=== PATIENT | female | born 1980 | race Caucasian/White ===

== ENCOUNTER 2016-12-21 18:50 | Emergency (ER) | payer OTHER ==
[2016-12-21 18:55] VITALS: TEMP 99
[2016-12-21] MEDS ORDERED: RX INFO: IV CONTRAST WAS GIVEN 1 EACH MISC MISCELLANE PRN (19:04)
[2016-12-21] MEDS ORDERED: SODIUM CHLORIDE 0.9% 2,000 ML IV ONE (19:05)
[2016-12-21] MEDS ORDERED: HYDROmorphone 1 MG/ML 1 ML SYRINGE IVP STA (19:05)
[2016-12-21] MEDS ORDERED: KETOROLAC 30 MG/ML 1 ML VIAL IVP STA (19:05)
[2016-12-21] MEDS ORDERED: AMPICILLIN-SULBACTAM 3 GM in SODIUM CHLORIDE 0.9% 100 ML IVPB STA (19:12)
--- NOTE | 2016-12-21 19:13 | ED ---
Skin/Abscess/FB HPI - General Chief complaint: Skin/Abscess/Foreign Body Stated complaint: abscess in throat Time Seen by Provider: 12/21/16 18:57 Source: patient, RN notes reviewed, old records reviewed Mode of arrival: ambulatory Limitations: no limitations - History of Present Illness Initial comments: This is a 36-year-old female with chief complaint of right sided throat, neck, facial swelling for the past day and half. Patient per that she's had pain and difficulty swallowing for the past 3 days. She reports that she may have had an abscess in her tooth that started cause this, reports that she frequently uses a toothpick in the back of her mouth and thinks maybe there is something stuck back there. Patient states that she's had a mild fever. Denies any recent use of antibiotics. Patient states that she feels like the back of her throat as touching her uvula. She denies any difficulty breathing at this time. Denies any chest pain or shortness of breath, nausea or vomiting. - Related Data Home Medications Medication Instructions Recorded Confirmed Omeprazole [PriLOSEC] 20 mg PO AC-BRKFST 07/26/15 12/21/16 Allergies Allergy/AdvReac Type Severity Reaction Status Date / Time tramadol HCl [From Ultram] Allergy Rash/Hives Verified 12/21/16 19:12 Review of Systems ROS Statement: Those systems with pertinent positive or pertinent negative responses have been documented in the HPI. ROS Other: All systems not noted in ROS Statement are negative. Past Medical History Past Medical History: No Reported History History of Any Multi-Drug Resistant Organisms: MRSA Date of last positivie culture/infection: 2005/MRSA MDRO Source:: Left leg Additional Past Surgical History / Comment(s): cyst removed from ovary, D & C, liver biopsy, breast biopsy Past Psychological History: Anxiety, Depression Smoking Status: Current every day smoker Past Alcohol Use History: None Reported Past Drug Use History: Marijuana General Exam - General Exam Comments Initial Comments: Ill-appearing 36-year-old female. Limitations: no limitations General appearance: alert, in no apparent distress Head exam: Present: atraumatic, normocephalic, normal inspection Eye exam: Present: normal appearance, PERRL, EOMI. Absent: scleral icterus, conjunctival injection, periorbital swelling ENT exam: Present: normal exam, mucous membranes moist, TM's normal bilaterally. Absent: normal oropharynx (Patient has evidence of what appears to be an abscess over the right upper oropharynx, no evidence of uvula deviation. ) Neck exam: Present: normal inspection, full ROM. Absent: tenderness, meningismus, lymphadenopathy Respiratory exam: Present: normal lung sounds bilaterally. Absent: respiratory distress, wheezes, rales, rhonchi, stridor Cardiovascular Exam: Present: regular rate, normal rhythm, normal heart sounds. Absent: systolic murmur, diastolic murmur, rubs, gallop, clicks GI/Abdominal exam: Present: soft, normal bowel sounds. Absent: distended, tenderness, guarding, rebound, rigid Extremities exam: Present: normal inspection, full ROM, normal capillary refill. Absent: tenderness, pedal edema, joint swelling, calf tenderness Back exam: Present: normal inspection Neurological exam: Present: alert, oriented X3, CN II-XII intact Psychiatric exam: Present: normal affect, normal mood Skin exam: Present: warm, dry, intact, normal color. Absent: rash Course Vital Signs 12/21/16 12/21/16 18:51 20:44 Temperature 99.0 F Pulse Rate 71 85 Respiratory 18 16 Rate Blood Pressure 121/65 139/70 O2 Sat by Pulse 99 97 Oximetry Medical Decision Making - Medical Decision Making This is a 36-year-old female with chief complaint of right sided throat, neck, facial swelling for the past day and half. Patient per that she's had pain and difficulty swallowing for the past 3 days. She reports that she may have had an abscess in her tooth that started cause this, reports that she frequently uses a toothpick in the back of her mouth and thinks maybe there is something stuck back there. Patient has evidence of a abscess over the right upper oropharynx. No evidence of uvular deviation at this time. Patient is tender over the entire neck. She does have somewhat of a muffled voice. Patient was given IV fluids and started on Unasyn. Patient received CT neck with contrast. Patient CT has shows evidence of right-sided peritonsillar abscess with mild necrosis. Patient is informed of these results. She was very started on IV Unasyn. Patient reports that she needs to go home to take care of her son who is currently in a 90 day treatment program. Patient is concerned that she is going to be in contact with [facility] if she leaves her son alone. Patient was adamant that she needs to leave. I discussed the risk and benefits for the patient including closing of the airway and worsening of infection. Patient understands these risks. Patient states that she is going to sign out AMA get her son and situation handle and then return for further treatment. Patient understands all risks of leaving AMA. - Lab Data Result diagrams: 12/21/16 19:25 12/21/16 19:25 Lab Results 12/21/16 12/21/16 12/21/16 Range/Units 19:25 19:25 19:25 WBC 14.1 H (3.8-10.6) k/uL RBC 3.90 (3.80-5.40) m/uL Hgb 11.1 L (11.4-16.0) gm/dL Hct 33.9 L (34.0-46.0) % MCV 87.1 (80.0-100.0) fL MCH 28.4 (25.0-35.0) pg MCHC 32.6 (31.0-37.0) g/dL RDW 16.4 H (11.5-15.5) % Plt Count 217 (150-450) k/uL Neutrophils % 76 % Lymphocytes % 17 % Monocytes % 4 % Eosinophils % 1 % Basophils % 1 % Neutrophils # 10.7 H (1.3-7.7) k/uL Lymphocytes # 2.3 (1.0-4.8) k/uL Monocytes # 0.6 (0-1.0) k/uL Eosinophils # 0.1 (0-0.7) k/uL Basophils # 0.1 (0-0.2) k/uL Anisocytosis Slight Sodium 142 (137-145) mmol/L Potassium 3.6 (3.5-5.1) mmol/L Chloride 107 (98-107) mmol/L Carbon Dioxide 23 (22-30) mmol/L Anion Gap 12 mmol/L BUN 6 L (7-17) mg/dL Creatinine 0.60 (0.52-1.04) mg/dL Est GFR (MDRD) Af Amer >60 (>60 ml/min/1.73 sqM) Est GFR (MDRD) Non-Af >60 (>60 ml/min/1.73 sqM) Glucose 83 (74-99) mg/dL Plasma Lactic Acid Pavel (0.7-2.0) mmol/L Calcium 9.3 (8.4-10.2) mg/dL Total Bilirubin 0.6 (0.2-1.3) mg/dL AST 13 L (14-36) U/L ALT 30 (9-52) U/L Alkaline Phosphatase 57 (38-126) U/L Total Protein 6.6 (6.3-8.2) g/dL Albumin 4.0 (3.5-5.0) g/dL Heterophile Antibody Negative (Negative) Group A Strep Rapid (Negative) 12/21/16 12/21/16 Range/Units 19:25 19:25 WBC (3.8-10.6) k/uL RBC (3.80-5.40) m/uL Hgb (11.4-16.0) gm/dL Hct (34.0-46.0) % MCV (80.0-100.0) fL MCH (25.0-35.0) pg MCHC (31.0-37.0) g/dL RDW (11.5-15.5) % Plt Count (150-450) k/uL Neutrophils % % Lymphocytes % % Monocytes % % Eosinophils % % Basophils % % Neutrophils # (1.3-7.7) k/uL Lymphocytes # (1.0-4.8) k/uL Monocytes # (0-1.0) k/uL Eosinophils # (0-0.7) k/uL Basophils # (0-0.2) k/uL Anisocytosis Sodium (137-145) mmol/L Potassium (3.5-5.1) mmol/L Chloride (98-107) mmol/L Carbon Dioxide (22-30) mmol/L Anion Gap mmol/L BUN (7-17) mg/dL Creatinine (0.52-1.04) mg/dL Est GFR (MDRD) Af Amer (>60 ml/min/1.73 sqM) Est GFR (MDRD) Non-Af (>60 ml/min/1.73 sqM) Glucose (74-99) mg/dL Plasma Lactic Acid Pavel 0.6 L (0.7-2.0) mmol/L Calcium (8.4-10.2) mg/dL Total Bilirubin (0.2-1.3) mg/dL AST (14-36) U/L ALT (9-52) U/L Alkaline Phosphatase (38-126) U/L Total Protein (6.3-8.2) g/dL Albumin (3.5-5.0) g/dL Heterophile Antibody (Negative) Group A Strep Rapid Negative (Negative) - Radiology Data Radiology results: report reviewed Bilateral tonsillar enlargement and more on the right side consistent with tonsillitis. There is a 1 small low density in the area anterior to the right tonsil which could be a peritonsillar abscess. Mild bilateral cervical adenopathy. There are tiny air bubbles in the region of the tonsils which raised the possibility of necrosis. Disposition Clinical Impression: Peritonsillar abscess Disposition: Left Against Medical Advice Condition: Stable Referrals: Jeancarlos Oh DO [Primary Care Provider] - 1-2 days Time of Disposition: 21:30
[2016-12-21] MEDS ORDERED: SODIUM CHLORIDE 0.9% 1,000 ML IV SCH (19:15)
[2016-12-21] MEDS ORDERED: ACETAMINOPHEN TAB 500 MG TAB PO STA (19:25)
[2016-12-21 19:54] LABS: Anisocytosis Slight; Basophils # (A) 0.1 k/uL (0-0.2); Basophils % (A) 1 %; CH 28.6; CHCM 32.9; Eosinophils # (A) 0.1 k/uL (0-0.7); Eosinophils % (A) 1 %; HCT 33.9 % (34.0-46.0); HDW 2.48; HGB 11.1 gm/dL (11.4-16.0); Luc # (Auto) 0.25; Luc % (Auto) 2; Lymphocytes # (A) 2.3 k/uL (1.0-4.8); Lymphocytes % (A) 17 %; MCH 28.4 pg (25.0-35.0); MCHC 32.6 g/dL (31.0-37.0); MCV 87.1 fL (80.0-100.0); Mean Platelet Volume 10.2; Monocytes # (A) 0.6 k/uL (0-1.0); Monocytes % (A) 4 %; Neutrophils # (A) 10.7 k/uL (1.3-7.7); Neutrophils % (A) 76 %; RDW 16.4 % (11.5-15.5); WBC 14.1 k/uL (3.8-10.6)
--- NOTE | 2016-12-21 19:54 | CT ---
EXAMINATION TYPE: CT soft tissue neck w con DATE OF EXAM: 12/21/2016 7:40 PM COMPARISON: NONE HISTORY: Patient complains of sore throat. CT DLP: 257.3 mGycm Automated exposure control for dose reduction was used. CONTRAST: CT scan of the neck is performed following with IV Contrast, patient injected with 100 mL of Omnipaqu e 300. Axial images are obtained, coronal and sagittal reformatted images are reviewed. FINDINGS: There is normal branching pattern of the great vessels on the aortic arch. There is bilateral arteria l flow in the vertebral arteries. Left vertebral artery is larger than the right. There is contrast o pacification of the carotid arteries and jugular veins. Thyroid gland is symmetric. Submandibular mihai ivary glands are fairly symmetric. Parotid glands are symmetric. Epiglottis appears normal. There is bilateral enlarged tonsils and more on the right side compared to the left. There are a few soft tiss ue air bubbles as well. There is a 12 mm hypodense area anterior to the right tonsil. The tongue appe ars normal. Ethmoid air cells appear normal. There are a few anterior triangle cervical lymph nodes. There is an enlarged right cervical lymph node that measures 1.7 cm. IMPRESSION: Bilateral tonsillar enlargement and more the right side consistent with tonsillitis. The re is a small low-density area anterior to the right tonsil that could be peritonsillar abscess. Mild bilateral cervical adenopathy. There are tiny air bubbles in the region of the the tonsils that rais e the possibility of necrosis.
[2016-12-21 20:13] LABS: ALT 30 U/L (9-52); AST 13 U/L (14-36); Alkaline Phosphatase 57 U/L (38-126); Anion Gap 12 mmol/L; Blood Urea Nitrogen 6 mg/dL (7-17); Calcium 9.3 mg/dL (8.4-10.2); Carbon Dioxide 23 mmol/L (22-30); Chloride 107 mmol/L (98-107); Glucose 83 mg/dL (74-99); Non-African American GFR(MDRD) >60 (>60 ml/min/1.73 sqM); Potassium 3.6 mmol/L (3.5-5.1); Sodium 142 mmol/L (137-145); Total Bilirubin 0.6 mg/dL (0.2-1.3); Total Protein 6.6 g/dL (6.3-8.2)
[2016-12-21 20:45] VITALS: BP 139/70; PULSE 85; RESP 16
== END 2016-12-21 21:34 | disposition left against medical advice (07) ==
LOC: EC 18:50
DX: J36 Peritonsillar abscess (principal); F17.200 Nicotine dependence, unspecified, uncomplicated; Z79.899 Other long term (current) drug therapy; Z88.6 Allergy status to analgesic agent
CPT/HCPCS: 36415; 80053; 83605; 85025; 86308; 87040; 87081; 87430; 70491; 99284; 96365; 96375 ×2; 96361; J1885; J1170; Q9967; J0295

== ENCOUNTER 2016-12-23 15:06 | Emergency (ER) | payer OTHER ==
[2016-12-23] MEDS ORDERED: RX INFO: IV CONTRAST WAS GIVEN 1 EACH MISC MISCELLANE PRN (16:15)
[2016-12-23 17:22] LABS: Anisocytosis Slight; Basophils # (A) 0.1 k/uL (0-0.2); Basophils % (A) 1 %; CH 28.5; CHCM 32.5; Eosinophils # (A) 0.3 k/uL (0-0.7); Eosinophils % (A) 3 %; HCT 33.5 % (34.0-46.0); HDW 2.49; HGB 10.8 gm/dL (11.4-16.0); Luc # (Auto) 0.14; Luc % (Auto) 2; Lymphocytes # (A) 2.6 k/uL (1.0-4.8); Lymphocytes % (A) 28 %; MCH 28.5 pg (25.0-35.0); MCHC 32.3 g/dL (31.0-37.0); MCV 88.1 fL (80.0-100.0); Mean Platelet Volume 10.4; Monocytes # (A) 0.4 k/uL (0-1.0); Monocytes % (A) 4 %; Neutrophils % (A) 64 %; RDW 16.6 % (11.5-15.5); WBC 9.4 k/uL (3.8-10.6); WBC (Perox) 9.88
[2016-12-23 17:31] LABS: Anion Gap 7 mmol/L; Blood Urea Nitrogen 9 mg/dL (7-17); Calcium 8.7 mg/dL (8.4-10.2); Carbon Dioxide 27 mmol/L (22-30); Chloride 109 mmol/L (98-107); Glucose 88 mg/dL (74-99); Non-African American GFR(MDRD) >60 (>60 ml/min/1.73 sqM); Potassium 3.7 mmol/L (3.5-5.1); Sodium 143 mmol/L (137-145)
--- NOTE | 2016-12-23 18:40 | CT ---
EXAMINATION TYPE: CT neck chest w con DATE OF EXAM: 12/23/2016 6:02 PM COMPARISON: NONE HISTORY: swelling to right side, difficulty swallowing. CT DLP: 602.5 mGycm Automated exposure control for dose reduction was used. CONTRAST: CT scan of the neck is performed following with IV Contrast, patient injected with 100 mL of Omnipaqu e 300. Axial images are obtained, coronal and sagittal reformatted images are reviewed. Multiple axi al sections were obtained from the thoracic inlet to the diaphragm with intravenous contrast. FINDINGS: There is fairly normal aeration of the paranasal sinuses. Thyroid gland is symmetric. There is normal branching pattern of the great vessels on the aortic arch. There is normal contrast opacification of the carotid arteries and jugular veins. There is no sign of a pharyngeal mass. Epiglottis appears no rmal. There is mild symmetric hypertrophy of the tonsils. The submandibular salivary glands are symme tric. Parotid glands are symmetric. There are a few bilateral anterior triangle cervical lymph nodes that measure up to 1 cm. There may be a few air bubbles in the tonsils. The lungs are clear of infiltrate. There is no pleural effusion. Heart size is normal. There are no h ilar masses. There is no mediastinal adenopathy. The bony thorax is intact. Thoracic aorta appears no rmal. IMPRESSION: There is symmetric hypertrophy of the tonsils and a few air bubbles consistent with infl ammatory changes. There are a few anterior triangle cervical lymph nodes up to 1 cm. No evidence of an abscess. Negative CT scan of the chest.
--- NOTE | 2016-12-23 19:34 | ED ---
General Adult HPI - General Chief complaint: Recheck/Abnormal Lab/Rx Stated complaint: Poss infection Time Seen by Provider: 12/23/16 15:30 Source: patient Mode of arrival: ambulatory Limitations: no limitations - History of Present Illness Initial comments: This patient is a 36-year-old woman who presents to have reevaluation for sore throat. She states that she was here approximately 2 days ago having sore throat and noticing a little bit of swelling in the right anterior neck. She states that she was seen and had tests done. She was given a dose of antibiotics and was advised to stay in the hospital but she states that she had to go home and deal with some family issues. She states that she has resolved all that and now I would like to be reevaluated. The patient states that she does feel a little bit better. The main complaint is that when she eats solid food there is still a little bit of pain with swallowing. She is able to breathe and speak without issues. She states she can drink liquids without issues. Patient denies fever or chills. No palpitations. -: days(s) Radiation: non-radiation Quality: burning Consistency: constant Improves with: none Worsens with: eating Associated Symptoms: denies other symptoms Treatments Prior to Arrival: other (See HPI) - Related Data Home Medications Medication Instructions Recorded Confirmed Omeprazole [PriLOSEC] 20 mg PO AC-BRKFST 07/26/15 12/23/16 Ibuprofen [Motrin] 800 mg PO Q8H PRN 12/23/16 12/23/16 Previous Rx's Medication Instructions Recorded Amoxicillin/Potassium Clav 1 tab PO Q12HR #14 tab 12/23/16 [Augmentin 875-125 Tablet] Allergies Allergy/AdvReac Type Severity Reaction Status Date / Time tramadol HCl [From Ultram] Allergy Rash/Hives Verified 12/23/16 15:31 Review of Systems ROS Statement: Those systems with pertinent positive or pertinent negative responses have been documented in the HPI. ROS Other: All systems not noted in ROS Statement are negative. Constitutional: Denies: fever, chills, weakness ENT: Reports: throat pain. Denies: ear pain, hearing loss, congestion Respiratory: Denies: cough, dyspnea, wheezes, hemoptysis Cardiovascular: Denies: palpitations Gastrointestinal: Denies: abdominal pain Skin: Denies: rash Neurological: Denies: headache, weakness, numbness Past Medical History Past Medical History: No Reported History History of Any Multi-Drug Resistant Organisms: MRSA Date of last positivie culture/infection: 2005/MRSA MDRO Source:: Left leg Additional Past Surgical History / Comment(s): cyst removed from ovary, D & C, liver biopsy, breast biopsy Past Psychological History: Anxiety, Depression Smoking Status: Current every day smoker Past Alcohol Use History: None Reported Past Drug Use History: Marijuana General Exam Limitations: no limitations General appearance: alert, in no apparent distress Head exam: Present: atraumatic, normocephalic Eye exam: Present: normal appearance. Absent: scleral icterus, conjunctival injection ENT exam: Present: mucous membranes moist, TM's normal bilaterally, normal external ear exam, other (Patient has a healing ulceration of the right side of the pharynx approximately 5 mm diameter. There is not any significant swelling. The uvula is midline without edema. There is a trace of injection.) Neck exam: Present: full ROM, lymphadenopathy. Absent: tenderness, meningismus Respiratory exam: Present: normal lung sounds bilaterally. Absent: respiratory distress, wheezes, rales, rhonchi, stridor Cardiovascular Exam: Present: regular rate, normal rhythm, normal heart sounds. Absent: systolic murmur, diastolic murmur, rubs, gallop GI/Abdominal exam: Present: soft. Absent: distended, tenderness, guarding, rebound, mass Extremities exam: Present: normal inspection, normal capillary refill. Absent: pedal edema, calf tenderness Back exam: Present: normal inspection. Absent: CVA tenderness (R), CVA tenderness (L) Neurological exam: Present: alert Skin exam: Present: warm, dry, intact, normal color. Absent: rash Course Vital Signs 12/23/16 12/23/16 15:12 18:34 Temperature 98.0 F Pulse Rate 85 56 L Respiratory 20 18 Rate Blood Pressure 108/74 117/66 O2 Sat by Pulse 100 98 Oximetry Medical Decision Making - Lab Data Result diagrams: 12/23/16 17:09 12/23/16 17:09 Lab Results 12/23/16 12/23/16 12/23/16 Range/Units 17:09 17:09 17:09 WBC 9.4 (3.8-10.6) k/uL RBC 3.80 (3.80-5.40) m/uL Hgb 10.8 L (11.4-16.0) gm/dL Hct 33.5 L (34.0-46.0) % MCV 88.1 (80.0-100.0) fL MCH 28.5 (25.0-35.0) pg MCHC 32.3 (31.0-37.0) g/dL RDW 16.6 H (11.5-15.5) % Plt Count 231 (150-450) k/uL Neutrophils % 64 % Lymphocytes % 28 % Monocytes % 4 % Eosinophils % 3 % Basophils % 1 % Neutrophils # 6.0 (1.3-7.7) k/uL Lymphocytes # 2.6 (1.0-4.8) k/uL Monocytes # 0.4 (0-1.0) k/uL Eosinophils # 0.3 (0-0.7) k/uL Basophils # 0.1 (0-0.2) k/uL Anisocytosis Slight Sodium 143 (137-145) mmol/L Potassium 3.7 (3.5-5.1) mmol/L Chloride 109 H (98-107) mmol/L Carbon Dioxide 27 (22-30) mmol/L Anion Gap 7 mmol/L BUN 9 (7-17) mg/dL Creatinine 0.56 (0.52-1.04) mg/dL Est GFR (MDRD) Af Amer >60 (>60 ml/min/1.73 sqM) Est GFR (MDRD) Non-Af >60 (>60 ml/min/1.73 sqM) Glucose 88 (74-99) mg/dL Plasma Lactic Acid Pavel 0.8 (0.7-2.0) mmol/L Calcium 8.7 (8.4-10.2) mg/dL Disposition Clinical Impression: Tonsillitis Disposition: HOME SELF-CARE Condition: Good Instructions: Tonsillitis (ED) Prescriptions: Amoxicillin/Potassium Clav [Augmentin 875-125 Tablet] 1 tab PO Q12HR #14 tab Referrals: Jeancarlos Oh DO [Primary Care Provider] - 1-2 days
[2016-12-23 19:55] VITALS: BP 105/77; PULSE 59; RESP 16; TEMP 98.8
== END 2016-12-23 19:54 | disposition home or self-care (01) ==
LOC: EC 15:06
DX: J03.90 Acute tonsillitis, unspecified (principal); F17.200 Nicotine dependence, unspecified, uncomplicated; Z88.5 Allergy status to narcotic agent; Z79.899 Other long term (current) drug therapy
CPT/HCPCS: 99283; 96365; 36415; 80048; 83605; 85025; 70491; 71260; J0696; Q9967

== ENCOUNTER 2017-04-09 07:06 | Day surgery (SDC) | payer OTHER ==
[2017-04-07 18:01] VITALS: BMI 22.6
[~2017-04-09 07:06] MED LIST: LACTATED RINGERS 1,000 ML IV SCH; LIDOCAINE 1% 20 ML VIAL (10MG/ML) FOR IV START INTRADERMA PRN
[2017-04-09 07:41] VITALS: TEMP 97.5
[2017-04-09] MEDS ORDERED: PROPOFOL 10 MG/ML 20 ML VIAL IV ONE (07:42)
--- NOTE | 2017-04-09 07:45 | P.GSHP ---
History of Present Illness H&P Date: 04/09/17 Chief Complaint: GERD HPI 36 yr old female presents with epigastric pain, reflux. She smokes marijuana and cigarettes. No weight loss. Takes omeprazole 20 mg po daily with no relief ROS Additionally reports: Constitutional: No fever, chills or rigors. No weight loss or loss of appetite. HEENT: No difficulty with hearing, vision and swallowing. Lymphatic: No axillary, inguinal and cervical swellings. Endocrine: No thyroid disorders. Denies history of diabetes. Respiratory: No chest pain, shortness of breath, and cough. No hemoptysis. Cardiovascular: No palpitations, irregular HR Gastrointestinal: Has heartburn. No change in bowel habits. Genitourinary: No increase in urinary frequency or urgency. No hematuria. Musculoskeletal: No back pain, joint stiffness or pain. Neurologic: No history of seizure disorder and headaches. Psychiatric: Has anxiety . No suicidal ideation. Hematologic: Denies any abnormal mucosal bleeding or easy bruising. Physical Exam Patient is a 36-year-old female. Constitutional: General Appearance: healthy-appearing, well-nourished, and well- developed. Level of Distress: NAD. Ambulation: ambulating normally. Psychiatric: Insight: good judgement. Orientation: to time, place, and person. Head: Head: normocephalic and atraumatic. Eyes: Lids and Conjunctivae: no discharge or pallor and non-injected. Sclerae: non-icteric. ENMT: Oropharynx: moist mucous membranes. Abdomen: Bowel Sounds: normal. Inspection and Palpation: no tenderness or guarding and soft and non-distended. Musculoskeletal:: Motor Strength and Tone: normal and normal tone. Joints, Bones , and Muscles: normal movement of all extremities. Extremities: no cyanosis or edema. Neurologic: Gait and Station: normal gait and station. Cranial Nerves: grossly intact. Assessment / Plan 1. Esophagogastroduodenoscopy with biopsy 2. Informed consent obtained from the patient after explaining the risks, benefits and potential complications of EGD including bleeding and perforation 3. Patient demonstrated understanding of the procedure and agreed to undergo EGD with possible biopsy/polypectomy 4. Smoking cessation counselling done for more than 3 min 1. Gastroesophageal reflux disease without esophagitis K21.9: Gastro-esophageal reflux disease without esophagitis Past Medical History Past Medical History: No Reported History Additional Past Medical History / Comment(s): ANEMIC. FATTY LIVER. History of Any Multi-Drug Resistant Organisms: MRSA Date of last positivie culture/infection: 2006/MRSA MDRO Source:: Left leg Additional Past Surgical History / Comment(s): cyst removed from ovary, D & C, liver biopsy, LT breast biopsy. Past Anesthesia/Blood Transfusion Reactions: Motion Sickness Smoking Status: Light tobacco smoker - Past Family History Mother Family Medical History: No Reported History Medications and Allergies Home Medications Medication Instructions Recorded Confirmed Type Omeprazole [PriLOSEC] 20 mg PO BID 07/26/15 04/07/17 History Acetaminophen Tab [Tylenol Tab] 650 mg PO Q6H PRN 04/07/17 04/07/17 History Ferrous Sulfate [Feosol] 325 mg PO DAILY 04/07/17 04/07/17 History Naproxen Sodium [Aleve] 220 mg PO BID PRN 04/07/17 04/07/17 History Pnv No.95/Ferrous Fum/Folic AC 1 each PO DAILY 04/07/17 04/07/17 History [ Multivitamin Tablet] Allergies Allergy/AdvReac Type Severity Reaction Status Date / Time tramadol HCl [From Ultra] Allergy Rash/Hives Verified 04/09/17 07:17 Surgical - Exam Vital Signs Temp Pulse Resp BP Pulse Ox 97.5 F L 67 16 109/71 98 04/09/17 07:39 04/09/17 07:39 04/09/17 07:39 04/09/17 07:39 04/09/17 07:39
--- NOTE | 2017-04-09 08:00 | P.OP ---
Date of Procedure: 04/09/17 Preoperative Diagnosis: GERD Nicotine dependence Marijuana use Postoperative Diagnosis: Same Procedure(s) Performed: Esophagogastroduodenoscopy with antral biopsy and GE junction biopsy using cold biopsy forceps Implants: NA Anesthesia: MAC Surgeon: Marissa Mcgovern Pathology: other Condition: stable Disposition: PACU Indications for Procedure: 36 years old female presents with severe GERD symptoms. Informed consent obtained and she elected to undergo EGD with possible biopsy. Operative Findings: No hiatal hernia GE junction located at 36 cm from the incisors LA grade 2 reflux esophagitis Description of Procedure: A timeout was performed to verify the correct patient and correct procedure. Patient was on continuous vitals and pulse ox monitoring throughout the procedure. She was placed in lateral decubitus position and an oral bite block was inserted. A well-lubricated Olympus upper endoscope was passed orally. The esophagus was intubated without difficulty. The vocal cords were visualised and protected at all times. The endoscope was passed beyond the pylorus into the first and second portion of the duodenum. No abnormality was noted in the duodenum mucosa. Two random biopsies were taken from the gastric antrum using cold biopsy forceps. The scope was then retroflexed.No hiatal hernia. No mass, active ulcer or bleeding stigmata noted within the gastric lumen. The GE junction is measured at 36 cm from the incisors . LA Grade 2 distal esophagitis. This area was biopsied using cold bx forceps. The endoscope was gradually withdrawn. No abnormality identified in the esophagus. Patient tolerated the procedure well and was taken to post anesthesia care unit in stable condition. FINAL DIAGNOSIS: 1. No Hiatal hernia 2. Gastro esophageal reflux disease 3. Distal esophagitis SPECIMEN: Antral biopsy Distal esophagus biopsy RECOMMENDATION: 1. Quit smoking 2. Avoid NSAIDs and Naproxen 3. Continue Omeprazole Final Pathologic Diagnosis A. GASTRIC ANTRUM, BIOPSY: MINIMAL CHRONIC GASTRITIS. IMMUNOPEROXIDASE STAIN NEGATIVE FOR HELICOBACTER PYLORI ORGANISMS (CONTROLS APPROPRIATE). B. ESOPHAGUS, BIOPSY: MATURE SQUAMOGLANDULAR MUCOSA SHOWING CHRONIC ESOPHAGITIS WITH CHRONIC AND MINIMAL ACUTE INFLAMMATION OF THE GLANDULAR COMPONENT. NEGATIVE FOR INTESTINAL METAPLASIA.
[2017-04-09 08:16] VITALS: BP 110/65; PULSE 56; RESP 16
== END 2017-04-09 08:43 | disposition home or self-care (01) ==
LOC: ORWHC2ENDO 07:06
PROVIDERS: ATTEND Surgery
DX: K29.30 Chronic superficial gastritis without bleeding (principal); K21.0 Gastro-esophageal reflux disease with esophagitis; F17.210 Nicotine dependence, cigarettes, uncomplicated; Z86.14 Personal history of Methicillin resistant Staphylococcus aureus infection; Z79.899 Other long term (current) drug therapy; Z88.5 Allergy status to narcotic agent
CPT/HCPCS: 81025; 88305; 88342; 43239; J2704

== ENCOUNTER → 2018-08-10 | Outpatient (CLI) | payer OTHER ==
--- NOTE | 2018-08-10 23:10 | US ---
EXAMINATION TYPE: US thyroid st tissue head/neck DATE OF EXAM: 08/10/2018 COMPARISON: NONE CLINICAL HISTORY: 38-year-old female E04.9 Nontoxic Goiter. TECHNIQUE: Multiple sonographic images of the thyroid gland are obtained. FINDINGS: GLAND SIZE: Right Lobe: 5.2 x 1.6 x 1.9 cm Overall Parenchyma: homogenous Left Lobe: 5.3 x 1.1 x 1.7 cm Overall Parenchyma: homogeneous Isthmus Thickness: 0.4 cm NODULES RIGHT: # of nodules measured on right: 0 LEFT: # of nodules measured on left: 1 1. 0.4 X 0.4 x 0.5 cm hypoechoic mixed nodule at the lower pole with well-defined margins. This no dule is wider than tall and shows no intranodular vascularity. Prior size: no previous ISTHMUS: # of nodules measured in the isthmus: 0 Bilateral neck scanned, no evidence of lymphadenopathy. IMPRESSION: 1. Mild thyromegaly. 2. Mixed solid cystic 5 mm nodule at the left lower pole.
== END | disposition home or self-care (01) ==
LOC: RADUSWWP 16:10
PROVIDERS: ATTEND Family Medicine
DX: E04.1 Nontoxic single thyroid nodule (principal)
CPT/HCPCS: 76536

== ENCOUNTER → 2019-06-07 | Outpatient (CLI) | payer OTHER ==
--- NOTE | 2019-06-07 12:50 | XR ---
EXAM TYPE: LUMBAR SPINE X RAY SERIES COMPARISON: NONE HISTORY: Low back pain TECHNIQUE: 4 views are submitted. FINDINGS: Alignment is anatomic. The pedicles are intact. The transverse processes are intact. There is no o r spondylolisthesis. Hypertrophic spurring is noted involving the vertebral column. IMPRESSION: 1. Mild multilevel hypertrophic changes. Consider follow-up MRI.
== END | disposition home or self-care (01) ==
LOC: RADXRMAIN 12:22
PROVIDERS: ATTEND Family Medicine
DX: M54.5 Low back pain (principal)
CPT/HCPCS: 72100

== ENCOUNTER → 2020-03-07 | Outpatient (CLI) | payer OTHER ==
[2020-03-07 19:36] LABS: T4, Free (Free Thyroxine) 0.9 ng/dL (0.80-1.80)
== END | disposition home or self-care (01) ==
LOC: LABWHC1 12:11
PROVIDERS: ATTEND Family Medicine
DX: E03.9 Hypothyroidism, unspecified (principal)
CPT/HCPCS: 36415; 84439; 84443

== ENCOUNTER → 2020-09-18 | Outpatient (CLI) | payer OTHER ==
--- NOTE | 2020-09-18 22:43 | MR ---
EXAMINATION TYPE: MR lumbar spine wo con DATE OF EXAM: 09/18/2020 COMPARISON: Lumbar spine x-ray June 07, 2019 HISTORY: Low back pain that travels into right buttocks for 10+ years. TECHNIQUE: Multiplanar, multisequence imaging of the lumbar spine is performed without IV contrast. FINDINGS: Sagittal images of the lumbar spine show vertebral body heights and alignment to appear sat isfactory. The intervertebral discs demonstrate normal heights and hydration. The conus medullaris i s normal in position and signal ending superior L2 level. The bone marrow signal intensity is within normal limits. Axial images show mild facet arthropathy L3-L4 and L4-L5 levels. Spinal canal is preserved. Bilateral neural foramina are patent. Other lumbar levels within normal limits. Paraspinal muscle bulk maintai ankit. IMPRESSION: Mild facet arthropathy L3-L4 and L4-L5 levels. No significant large disc herniation.
== END | disposition home or self-care (01) ==
LOC: RADMRIMAIN 15:47
PROVIDERS: ATTEND Family Medicine
DX: M54.5 Low back pain (principal)
CPT/HCPCS: 72148

== ENCOUNTER 2021-01-29 11:58 | Emergency (ER) | payer OTHER ==
[2021-01-29 12:05] VITALS: RESP 18; TEMP 98
[2021-01-29] MEDS ORDERED: KETOROLAC 15 MG/ML 1 ML VIAL IVP STA (12:35)
[2021-01-29] MEDS ORDERED: MORPHINE SULFATE 4 MG/ML SYRINGE IV STA (12:35)
[2021-01-29] MEDS ORDERED: ONDANSETRON 4 MG/2 ML VIAL IVP STA (12:35)
[2021-01-29] MEDS ORDERED: SODIUM CHLORIDE 0.9% 1,000 ML IV STA (12:35)
--- NOTE | 2021-01-29 12:46 | ED ---
General Adult HPI - General Chief complaint: Back Pain/Injury Stated complaint: Abd Pain Time Seen by Provider: 01/29/21 12:08 Source: patient Limitations: no limitations - History of Present Illness Initial comments: Patient presents to the [facility] department complaining of sharp right flank pain. The pain radiates to the front. Nothing makes it better or worse. She wasn't doing anything when it began. She has nausea but no vomiting. She has no chest pain or shortness of breath. She has no weakness. She has no fevers or chills. She has taken no medicines. - Related Data Home Medications Medication Instructions Recorded Confirmed Omeprazole [PriLOSEC] 20 mg PO BID 07/26/15 01/29/21 Pnv No.95/Ferrous Fum/Folic AC 1 tab PO DAILY 04/07/17 01/29/21 [ Multivitamin Tablet] Ascorbic Acid [Vitamin C] 2,000 mg PO DAILY 01/29/21 01/29/21 Levothyroxine Sodium 25 mcg PO DAILY 01/29/21 01/29/21 Naproxen 500 mg PO BID PRN 01/29/21 01/29/21 tiZANidine HCL 4 mg PO BID 01/29/21 01/29/21 Allergies Allergy/AdvReac Type Severity Reaction Status Date / Time tramadol HCl [From [facility]] Allergy Rash/Hives Verified 01/29/21 15:27 Review of Systems ROS Statement: Those systems with pertinent positive or pertinent negative responses have been documented in the HPI. ROS Other: All systems not noted in ROS Statement are negative. Past Medical History Past Medical History: No Reported History Additional Past Medical History / Comment(s): ANEMIC. FATTY LIVER. History of Any Multi-Drug Resistant Organisms: MRSA Date of last positivie culture/infection: 2005/MRSA MDRO Source:: Left leg Additional Past Surgical History / Comment(s): cyst removed from ovary, D & C, liver biopsy, breast biopsy Past Anesthesia/Blood Transfusion Reactions: Motion Sickness Past Psychological History: Anxiety, Depression Smoking Status: Current every day smoker Past Alcohol Use History: None Reported Past Drug Use History: Marijuana - Past Family History Mother Family Medical History: No Reported History General Exam Limitations: no limitations General appearance: alert, in no apparent distress Head exam: Present: atraumatic, normocephalic, normal inspection Eye exam: Present: normal appearance, PERRL, EOMI. Absent: scleral icterus, conjunctival injection, periorbital swelling ENT exam: Present: normal exam, mucous membranes moist Neck exam: Present: normal inspection. Absent: tenderness, meningismus, lymphadenopathy Respiratory exam: Present: normal lung sounds bilaterally. Absent: respiratory distress, wheezes, rales, rhonchi, stridor Cardiovascular Exam: Present: regular rate, normal rhythm, normal heart sounds. Absent: systolic murmur, diastolic murmur, rubs, gallop, clicks GI/Abdominal exam: Present: soft, normal bowel sounds. Absent: distended, tenderness, guarding, rebound, rigid Extremities exam: Present: normal inspection, full ROM, normal capillary refill. Absent: tenderness, pedal edema, joint swelling, calf tenderness Back exam: Present: normal inspection Neurological exam: Present: alert, oriented X3, CN II-XII intact Psychiatric exam: Present: normal affect, normal mood Skin exam: Present: warm, dry, intact, normal color. Absent: rash Course Vital Signs 01/29/21 01/29/21 12:00 15:24 Temperature 98 F Pulse Rate 78 86 Respiratory 18 18 Rate Blood Pressure 135/99 116/78 O2 Sat by Pulse 100 99 Oximetry Medical Decision Making - Medical Decision Making Patient presents with right flank pain. She has a distal 2 mm kidney stone. She has no evidence of infection on the urine. Patient is feeling much better. She tolerates oral intake. She is stable for discharge. - Lab Data Result diagrams: 01/29/21 12:47 01/29/21 12:47 Lab Results 01/29/21 01/29/21 01/29/21 Range/Units 12:15 12:15 12:15 WBC (3.8-10.6) k/uL RBC (3.80-5.40) m/uL Hgb (11.4-16.0) gm/dL Hct (34.0-46.0) % MCV (80.0-100.0) fL MCH (25.0-35.0) pg MCHC (31.0-37.0) g/dL RDW (11.5-15.5) % Plt Count (150-450) k/uL MPV Neutrophils % % Lymphocytes % % Monocytes % % Eosinophils % % Basophils % % Neutrophils # (1.3-7.7) k/uL Lymphocytes # (1.0-4.8) k/uL Monocytes # (0-1.0) k/uL Eosinophils # (0-0.7) k/uL Basophils # (0-0.2) k/uL Sodium (137-145) mmol/L Potassium (3.5-5.1) mmol/L Chloride (98-107) mmol/L Carbon Dioxide (22-30) mmol/L Anion Gap mmol/L BUN (7-17) mg/dL Creatinine (0.52-1.04) mg/dL Est GFR (CKD-EPI)AfAm (>60 ml/min/1.73 sqM) Est GFR (CKD-EPI)NonAf (>60 ml/min/1.73 sqM) Glucose (74-99) mg/dL Calcium (8.4-10.2) mg/dL Total Bilirubin (0.2-1.3) mg/dL AST (14-36) U/L ALT (4-34) U/L Alkaline Phosphatase (38-126) U/L Total Protein (6.3-8.2) g/dL Albumin (3.5-5.0) g/dL Lipase (23-300) U/L Urine Color Yellow Urine Appearance Clear (Clear) Urine pH 7.5 (5.0-8.0) Ur Specific [place] 1.023 (1.001-1.035) Urine Protein Trace H (Negative) Urine Glucose (UA) Negative (Negative) Urine Ketones 3+ H (Negative) Urine Blood Large H (Negative) Urine Nitrite Negative (Negative) Urine Bilirubin Negative (Negative) Urine Urobilinogen 2.0 (<2.0) mg/dL Ur Leukocyte Esterase Negative (Negative) Urine RBC >182 H (0-5) /hpf Urine WBC 5 (0-5) /hpf Ur Squamous Epith Cells 2 (0-4) /hpf Urine Mucus Occasional H (None) /hpf Urine HCG, Qual Not Detected (Not Detectd) Urine Opiates Screen Not Detected (NotDetected) Ur Oxycodone Screen Not Detected (NotDetected) Urine Methadone Screen Not Detected (NotDetected) Ur Propoxyphene Screen Not Detected (NotDetected) Ur Barbiturates Screen Not Detected (NotDetected) U Tricyclic Antidepress Not Detected (NotDetected) Ur Phencyclidine Scrn Not Detected (NotDetected) Ur Amphetamines Screen Detected H (NotDetected) U Methamphetamines Scrn Detected H (NotDetected) U Benzodiazepines Scrn Not Detected (NotDetected) Urine Cocaine Screen Not Detected (NotDetected) U Marijuana (THC) Screen Detected H (NotDetected) 01/29/21 01/29/21 Range/Units 12:47 12:47 WBC 12.7 H (3.8-10.6) k/uL RBC 4.19 (3.80-5.40) m/uL Hgb 12.5 (11.4-16.0) gm/dL Hct 37.3 (34.0-46.0) % MCV 89.1 (80.0-100.0) fL MCH 29.9 (25.0-35.0) pg MCHC 33.6 (31.0-37.0) g/dL RDW 13.7 (11.5-15.5) % Plt Count 306 (150-450) k/uL MPV 10.2 Neutrophils % 80 % Lymphocytes % 13 % Monocytes % 4 % Eosinophils % 2 % Basophils % 1 % Neutrophils # 10.1 H (1.3-7.7) k/uL Lymphocytes # 1.7 (1.0-4.8) k/uL Monocytes # 0.5 (0-1.0) k/uL Eosinophils # 0.3 (0-0.7) k/uL Basophils # 0.1 (0-0.2) k/uL Sodium 137 (137-145) mmol/L Potassium 3.6 (3.5-5.1) mmol/L Chloride 105 (98-107) mmol/L Carbon Dioxide 24 (22-30) mmol/L Anion Gap 8 mmol/L BUN 19 H (7-17) mg/dL Creatinine 0.58 (0.52-1.04) mg/dL Est GFR (CKD-EPI)AfAm >90 (>60 ml/min/1.73 sqM) Est GFR (CKD-EPI)NonAf >90 (>60 ml/min/1.73 sqM) Glucose 110 H (74-99) mg/dL Calcium 9.0 (8.4-10.2) mg/dL Total Bilirubin 0.5 (0.2-1.3) mg/dL AST 26 (14-36) U/L ALT 26 (4-34) U/L Alkaline Phosphatase 64 (38-126) U/L Total Protein 6.8 (6.3-8.2) g/dL Albumin 4.0 (3.5-5.0) g/dL Lipase 47 (23-300) U/L Urine Color Urine Appearance (Clear) Urine pH (5.0-8.0) Ur Specific Trenary (1.001-1.035) Urine Protein (Negative) Urine Glucose (UA) (Negative) Urine Ketones (Negative) Urine Blood (Negative) Urine Nitrite (Negative) Urine Bilirubin (Negative) Urine Urobilinogen (<2.0) mg/dL Ur Leukocyte Esterase (Negative) Urine RBC (0-5) /hpf Urine WBC (0-5) /hpf Ur Squamous Epith Cells (0-4) /hpf Urine Mucus (None) /hpf Urine HCG, Qual (Not Detectd) Urine Opiates Screen (NotDetected) Ur Oxycodone Screen (NotDetected) Urine Methadone Screen (NotDetected) Ur Propoxyphene Screen (NotDetected) Ur Barbiturates Screen (NotDetected) U Tricyclic Antidepress (NotDetected) Ur Phencyclidine Scrn (NotDetected) Ur Amphetamines Screen (NotDetected) U Methamphetamines Scrn (NotDetected) U Benzodiazepines Scrn (NotDetected) Urine Cocaine Screen (NotDetected) U Marijuana (THC) Screen (NotDetected) Disposition Clinical Impression: Kidney stone Disposition: HOME SELF-CARE Condition: Good Instructions (If sedation given, give patient instructions): Kidney Stones (ED) Is patient prescribed a controlled substance at d/c from ED?: No Referrals: Jeancarlos Oh DO [Primary Care Provider] - 1-2 days Roberto Ruano MD [STAFF PHYSICIAN] - 1-2 days
[2021-01-29 12:50] LABS: Appearance,Urine Clear (Clear); Bilirubin,Urine Negative (Negative); Blood,Urine Large (Negative); Color,Urine Yellow; Glucose,Urine (UA) Negative (Negative); Ketones,Urine 3+ (Negative); Leukocyte Esterase,Urine Negative (Negative); Mucus,Urine Occasional /hpf; Nitrite,Urine Negative (Negative); PH, Urine 7.5 (5.0-8.0); Protein,Urine Trace (Negative); RBC,Urine >182 /hpf (0-5); Specific Gravity,Urine 1.023 (1.001-1.035); Squamous Epithelial Cell,Urine 2 /hpf (0-4); WBC,Urine 5 /hpf (0-5)
[2021-01-29 13:03] LABS: Basophils # (A) 0.1 k/uL (0-0.2); Basophils % (A) 1 %; Eosinophils # (A) 0.3 k/uL (0-0.7); Eosinophils % (A) 2 %; HCT 37.3 % (34.0-46.0); HGB 12.5 gm/dL (11.4-16.0); Lymphocytes # (A) 1.7 k/uL (1.0-4.8); Lymphocytes % (A) 13 %; MCH 29.9 pg (25.0-35.0); MCHC 33.6 g/dL (31.0-37.0); MCV 89.1 fL (80.0-100.0); Mean Platelet Volume 10.2; Monocytes # (A) 0.5 k/uL (0-1.0); Monocytes % (A) 4 %; Neutrophils # (A) 10.1 k/uL (1.3-7.7); Neutrophils % (A) 80 %; Platelet Count 306 k/uL (150-450); RBC 4.19 m/uL (3.80-5.40); RDW 13.7 % (11.5-15.5); WBC 12.7 k/uL (3.8-10.6)
[2021-01-29 13:05] LABS: Amphetamine Screen,Urine Detected (NotDetected); Barbiturate Screen,Urine Not Detected (NotDetected); Benzodiazepines Screen,Urine Not Detected (NotDetected); Cocaine Screen,Urine Not Detected (NotDetected); Methadone Screen, Urine Not Detected (NotDetected); Opiate Screen,Urine Not Detected (NotDetected); Oxycodone Screen, Urine Not Detected (NotDetected); Phencyclidine Screen,Urine Not Detected (NotDetected); Tricyclic Antidepressant,Urine Not Detected (NotDetected); Urn Cannabinoid Scrn Detected (NotDetected)
[2021-01-29 13:25] LABS: ALT 26 U/L (4-34); AST 26 U/L (14-36); African American GFR (CKD) >90 (>60 ml/min/1.73 sqM); Alkaline Phosphatase 64 U/L (38-126); Anion Gap 8 mmol/L; Blood Urea Nitrogen 19 mg/dL (7-17); Carbon Dioxide 24 mmol/L (22-30); Chloride 105 mmol/L (98-107); Glucose 110 mg/dL (74-99); Lipase 47 U/L (23-300); Non-African American GFR(CKD) >90 (>60 ml/min/1.73 sqM); Potassium 3.6 mmol/L (3.5-5.1); Sodium 137 mmol/L (137-145); Total Bilirubin 0.5 mg/dL (0.2-1.3); Total Protein 6.8 g/dL (6.3-8.2)
--- NOTE | 2021-01-29 14:28 | CT ---
EXAMINATION TYPE: CT abdomen pelvis w con DATE OF EXAM: 01/29/2021 COMPARISON: None INDICATION: Right sided pain with N/V. DLP: 1053.4 mGycm, Automated exposure control for dose reduction was used. CONTRAST: 100 mL of Isovue 300. Study performed without Oral Contrast TECHNIQUE: Axial images were obtained from above the diaphragm to the pubic rami in the axial plane a t 5 mm thick sections. Reconstructed images are reviewed on the computer in the coronal plane. FINDINGS: Limited CT sections are obtained the lung bases. The lung bases are clear. CT ABDOMEN: Liver: There is an irregular indistinct border hypodensity adjacent to the ligamentum teres within th e right lobe liver. This measures 3.6 x 2.0 cm. Consider correlation with ultrasound. There is diffus e moderate fatty gestation to the enlarged liver. Craniocaudal dimension is 18.7 cm. Spleen: Normal Pancreas: Normal Adrenal glands: The adrenal glands are normal. Gallbladder: Normal Kidneys: No masses are evident. No hydronephrosis is present. No cysts are present. There is mild right hydronephrosis. Mild hydroureter is present. This may extend to the ureteral vesicle junction. A punctate renal stone may be present estimated to measure 1 mm. Series 201 image 83. This is better visualized in the coronal plane measuring up to 0.2 cm. Series 202 image 58. Aorta: Vascular calcification is within the aorta. Inferior vena cava: Normal. CT PELVIS: Loops of bowel within the abdomen and pelvis are normal. There are loops of bowel which are incom pletely distended or lack oral contrast limiting their evaluation. Appendix: Not identified. No dilated tubular structure inflammatory changes evident. Urinary bladder: Normal. Genitourinary structures: Uterus is normal. Adnexal regions are normal. A follicle is likely present on the right ovary. Osseous structures: No suspicious lytic or sclerotic lesions. IMPRESSIONS: 1. 1 to 2 mm distal right ureteral vesicle junction stone with mild right hydronephrosis and hydrour eter. 2. Hepatomegaly with diffuse moderate fatty infiltration liver. 3. Ill-defined echodense area adjacent to the ligamentum teres. Consider additional evaluation with u ltrasound.
[2021-01-29 15:24] VITALS: BP 116/78; PULSE 86
--- NOTE | 2021-01-29 15:41 | US ---
EXAMINATION TYPE: US abdomen limited DATE OF EXAM: 01/29/2021 COMPARISON: CT 01/29/2021 CLINICAL HISTORY: 40-year-old female pain. RUQ pain and N/V TECHNIQUE: Multiple sonographic images of the right upper quadrant are obtained. FINDINGS: EXAM MEASUREMENTS: Liver Length: 13.6 cm Gallbladder Wall: 0.1 cm CBD: 0.3 cm Right Kidney: 9.0 x 5.7 x 4.8 cm Pancreas: obscured by overlying midline bowel gas Liver: Echogenic and attenuating. There is a 3.4 x 2.0 x 2.3cm echogenic area noted on the sagittal images. Gallbladder: wnl Evidence for sonographic Forrest's sign: no CBD: visualized portions wnl, limited by overlying bowel gas Right Kidney: Mild calyceal fullness. IMPRESSION: 1. Echogenic and attenuating hepatic parenchyma suggesting fatty infiltration. Correlate with LFTs, l ipid profile, patient risk factors. 2. A focal 3.4 cm echogenic region within the left lobe of the liver could represent a region of more pronounced focal fact. A hemangioma is also possible. Multiphasic liver MRI evaluation recommended. 3. Mild calyceal fullness in keeping with the mild right-sided hydronephrosis and seen on CT of the day.
[2021-01-29] MEDS ORDERED: HYDROmorphone 0.5 MG/0.5 ML SYRINGE IVP STA (16:26)
== END 2021-01-29 16:39 | disposition home or self-care (01) ==
LOC: EC 11:58
DX: N13.2 Hydronephrosis with renal and ureteral calculous obstruction (principal); F17.200 Nicotine dependence, unspecified, uncomplicated; F12.90 Cannabis use, unspecified, uncomplicated; Z79.899 Other long term (current) drug therapy
CPT/HCPCS: 36415; 80053; 83690; 85025; 81001; 81025; 80306; 76705; 74177; 96374; 96375 ×3; 96361; 99285; J2270; J2405; J1885; J1170; Q9967

== ENCOUNTER 2021-01-31 02:19 | Emergency (ER) | payer OTHER ==
[2021-01-31 02:24] VITALS: BP 160/107; PULSE 75; RESP 18; TEMP 98.1
[2021-01-31] MEDS ORDERED: PANTOPRAZOLE 40 MG/10 ML VIAL IVP STA (02:48)
[2021-01-31] MEDS ORDERED: SODIUM CHLORIDE 0.9% 1,000 ML IV STA ×2 (02:48)
[2021-01-31] MEDS ORDERED: ONDANSETRON 4 MG/2 ML VIAL IVP STA (02:48)
[2021-01-31] MEDS ORDERED: diphenhydrAMINE 50 MG/ML 1 ML VIAL IVP STA (02:48)
[2021-01-31] MEDS ORDERED: KETOROLAC 15 MG/ML 1 ML VIAL IVP STA (02:48)
[2021-01-31] MEDS ORDERED: HYDROmorphone 1 MG/ML 1 ML SYRINGE IVP STA ×2 (02:49→04:41)
--- NOTE | 2021-01-31 02:50 | ED ---
Recheck HPI - General Chief Complaint: Back Pain/Injury Stated Complaint: Abd Pain Time Seen by Provider: 01/31/21 02:27 Source: patient, RN notes reviewed, old records reviewed Mode of arrival: ambulatory Limitations: no limitations - History of Present Illness Initial Comments: This is a 40-year-old female DF for evaluation today. Today patient presents for evaluation regards to severe right flank pain. Patient has no recent diagnosis of kidney stone. Patient states pain is just been significantly worse, persistent. Patient is able to urinate. Has been taking medications as prescribed but the pain significantly increased tonight and she couldn't bear with a can sleep at home secondary to the pain. He denies any other complaints MD Complaint: medication refill request, other (Increased pain) -: days(s) Returns Today for: persistent/worsening pain related to initial visit Symptoms Since Prior Visit: worsening pain Associated Symptoms: none, shortness of breath Treatments Prior to Arrival: Given Pain Meds on - Related Data Home Medications Medication Instructions Recorded Confirmed Omeprazole [PriLOSEC] 20 mg PO BID 07/26/15 01/29/21 Pnv No.95/Ferrous Fum/Folic AC 1 tab PO DAILY 04/07/17 01/29/21 [ Multivitamin Tablet] Ascorbic Acid [Vitamin C] 2,000 mg PO DAILY 01/29/21 01/29/21 Levothyroxine Sodium 25 mcg PO DAILY 01/29/21 01/29/21 Naproxen 500 mg PO BID PRN 01/29/21 01/29/21 tiZANidine HCL 4 mg PO BID 01/29/21 01/29/21 Allergies Allergy/AdvReac Type Severity Reaction Status Date / Time tramadol HCl [From [facility]] Allergy Rash/Hives Verified 01/31/21 02:24 Review of Systems ROS Statement: Those systems with pertinent positive or pertinent negative responses have been documented in the HPI. ROS Other: All systems not noted in ROS Statement are negative. Past Medical History Past Medical History: No Reported History Additional Past Medical History / Comment(s): ANEMIC. FATTY LIVER. History of Any Multi-Drug Resistant Organisms: MRSA Date of last positivie culture/infection: 2005/MRSA MDRO Source:: Left leg Additional Past Surgical History / Comment(s): cyst removed from ovary, D & C, liver biopsy, breast biopsy Past Anesthesia/Blood Transfusion Reactions: Motion Sickness Past Psychological History: Anxiety, Depression Smoking Status: Current every day smoker Past Alcohol Use History: None Reported Past Drug Use History: Marijuana - Past Family History Mother Family Medical History: No Reported History General Exam Limitations: no limitations General appearance: alert, in no apparent distress Head exam: Present: atraumatic, normocephalic, normal inspection Eye exam: Present: normal appearance, PERRL, EOMI. Absent: scleral icterus, conjunctival injection, periorbital swelling ENT exam: Present: normal exam, mucous membranes moist Neck exam: Present: normal inspection. Absent: tenderness, meningismus, lymphadenopathy Respiratory exam: Present: normal lung sounds bilaterally. Absent: respiratory distress, wheezes, rales, rhonchi, stridor Cardiovascular Exam: Present: regular rate, normal rhythm, normal heart sounds. Absent: systolic murmur, diastolic murmur, rubs, gallop, clicks GI/Abdominal exam: Present: soft, normal bowel sounds. Absent: distended, tenderness, guarding, rebound, rigid Extremities exam: Present: normal inspection, full ROM, normal capillary refill. Absent: tenderness, pedal edema, joint swelling, calf tenderness Back exam: Present: normal inspection Neurological exam: Present: alert, oriented X3, CN II-XII intact Psychiatric exam: Present: normal affect, normal mood Skin exam: Present: warm, dry, intact, normal color. Absent: rash Course Vital Signs 01/31/21 02:23 Temperature 98.1 F Pulse Rate 75 Respiratory 18 Rate Blood Pressure 160/107 O2 Sat by Pulse 97 Oximetry - Reevaluation(s) Reevaluation #1: Medical record is reviewed Patient has no history of kidney stone Patient offered admission prefers discharge Patient symptoms are improved here in the ER Patient informed of results and questions answered Medical Decision Making - Medical Decision Making 40 female to the ER for evaluation. Patient has severe flank pain with right- sided kidney stone. Pain is well-controlled known he can be discharged - Lab Data Result diagrams: 01/31/21 03:22 01/31/21 03:22 Lab Results 01/31/21 01/31/21 Range/Units 03:22 03:22 WBC 17.3 H (3.8-10.6) k/uL RBC 4.54 (3.80-5.40) m/uL Hgb 14.2 (11.4-16.0) gm/dL Hct 41.0 (34.0-46.0) % MCV 90.2 (80.0-100.0) fL MCH 31.2 (25.0-35.0) pg MCHC 34.6 (31.0-37.0) g/dL RDW 14.1 (11.5-15.5) % Plt Count 318 (150-450) k/uL MPV 10.8 Neutrophils % 82 % Lymphocytes % 12 % Monocytes % 3 % Eosinophils % 2 % Basophils % 1 % Neutrophils # 14.1 H (1.3-7.7) k/uL Lymphocytes # 2.1 (1.0-4.8) k/uL Monocytes # 0.6 (0-1.0) k/uL Eosinophils # 0.3 (0-0.7) k/uL Basophils # 0.1 (0-0.2) k/uL Sodium 136 L (137-145) mmol/L Potassium 3.4 L (3.5-5.1) mmol/L Chloride 101 (98-107) mmol/L Carbon Dioxide 23 (22-30) mmol/L Anion Gap 12 mmol/L BUN 12 (7-17) mg/dL Creatinine 0.81 (0.52-1.04) mg/dL Est GFR (CKD-EPI)AfAm >90 (>60 ml/min/1.73 sqM) Est GFR (CKD-EPI)NonAf >90 (>60 ml/min/1.73 sqM) Glucose 106 H (74-99) mg/dL Calcium 9.4 (8.4-10.2) mg/dL Total Bilirubin 0.4 (0.2-1.3) mg/dL AST 26 (14-36) U/L ALT 27 (4-34) U/L Alkaline Phosphatase 77 (38-126) U/L Total Protein 7.4 (6.3-8.2) g/dL Albumin 4.5 (3.5-5.0) g/dL Lipase 63 (23-300) U/L - Radiology Data Radiology results: report reviewed (X-ray KUB is negative for acute disease), image reviewed Disposition Clinical Impression: Kidney stone, Right ureteral stone Disposition: HOME SELF-CARE Condition: Good Instructions (If sedation given, give patient instructions): Kidney Stones (ED) Is patient prescribed a controlled substance at d/c from ED?: No Referrals: Jeancarlos Oh DO [Primary Care Provider] - 1-2 days
[2021-01-31 03:32] LABS: Basophils # (A) 0.1 k/uL (0-0.2); Basophils % (A) 1 %; Eosinophils # (A) 0.3 k/uL (0-0.7); Eosinophils % (A) 2 %; HGB 14.2 gm/dL (11.4-16.0); Lymphocytes # (A) 2.1 k/uL (1.0-4.8); Lymphocytes % (A) 12 %; MCH 31.2 pg (25.0-35.0); MCHC 34.6 g/dL (31.0-37.0); MCV 90.2 fL (80.0-100.0); Mean Platelet Volume 10.8; Monocytes # (A) 0.6 k/uL (0-1.0); Monocytes % (A) 3 %; Neutrophils # (A) 14.1 k/uL (1.3-7.7); Neutrophils % (A) 82 %; Platelet Count 318 k/uL (150-450); RBC 4.54 m/uL (3.80-5.40); RDW 14.1 % (11.5-15.5); WBC 17.3 k/uL (3.8-10.6)
[2021-01-31 03:44] LABS: ALT 27 U/L (4-34); AST 26 U/L (14-36); African American GFR (CKD) >90 (>60 ml/min/1.73 sqM); Albumin 4.5 g/dL (3.5-5.0); Alkaline Phosphatase 77 U/L (38-126); Anion Gap 12 mmol/L; Blood Urea Nitrogen 12 mg/dL (7-17); Calcium 9.4 mg/dL (8.4-10.2); Carbon Dioxide 23 mmol/L (22-30); Chloride 101 mmol/L (98-107); Glucose 106 mg/dL (74-99); Lipase 63 U/L (23-300); Non-African American GFR(CKD) >90 (>60 ml/min/1.73 sqM); Potassium 3.4 mmol/L (3.5-5.1); Sodium 136 mmol/L (137-145); Total Bilirubin 0.4 mg/dL (0.2-1.3); Total Protein 7.4 g/dL (6.3-8.2)
--- NOTE | 2021-01-31 04:21 | XR ---
EXAMINATION TYPE: XR KUB DATE OF EXAM: 01/31/2021 COMPARISON: 03/07/2016 HISTORY: Abdominal pain TECHNIQUE: 2 views upright FINDINGS: There is no evidence of intestinal obstruction or pneumoperitoneum. There are some gas-fill ed small bowel loops in the mid abdomen. Lung bases are clear. There are no pathologic calcifications . IMPRESSION: There is evidence for some mild small bowel ileus. No free air.
[2021-01-31] MEDS ORDERED: ACET/COD 300 MG/30 MG STARTER PACK 6 TAB BTL PO STA (04:41)
[2021-01-31] MEDS ORDERED: IBUPROFEN 600 MG STARTER PACK 4 TAB BTL PO STA (04:41)
[2021-01-31] MEDS ORDERED: TAMSULOSIN 0.4 MG CAP.ER.24H PO STA (04:41)
[2021-01-31] MEDS ORDERED: ONDANSETRON 4 MG ODT STARTER PACK 2 TAB BTL PO STA (05:06)
== END 2021-01-31 05:17 | disposition home or self-care (01) ==
LOC: EC 02:19
DX: N20.2 Calculus of kidney with calculus of ureter (principal); F17.200 Nicotine dependence, unspecified, uncomplicated; F12.90 Cannabis use, unspecified, uncomplicated; Z79.890 Hormone replacement therapy; Z79.1 Long term (current) use of non-steroidal anti-inflammatories (NSAID); Z79.899 Other long term (current) drug therapy
CPT/HCPCS: 96374; 96375 ×4; 96376; 99284; 96361 ×2; 36415; 80053; 83690; 85025; 74018; J1200; J2405; J1170; J1885; S0119; C9113

== ENCOUNTER → 2021-04-21 | Outpatient (CLI) | payer OTHER ==
--- NOTE | 2021-04-24 16:32 | MR ---
MRI liver with and without contrast HISTORY: K 76.9 Multiplanar multisequence and postcontrast images obtained through the liver following 7.5 cc gadolin ium based IV. Correlation to CT scan 01/29/2021 ultrasound 01/30/2020: 1 The liver is enlarged. As noted in patient's ultrasound there is increased at 8 deposition identified in the region of concern on the CT, lower attenuation on the CT and more echogenic appearance on ult rasound, there is greater signal drop on out of phase imaging, focal fatty sparing present adjacent t o the gallbladder fossa, the gallbladder is normal, contracted. There is a cystic focus at the left l ateral level of the left lobe of the liver just inferior to the heart. No other discrete mass. There is no abnormal enhancement. The graft lung bases show no effusion. Pancreas is normal. Spleen is unre markable, adrenal glands and kidneys are within normal limits. Aorta shows normal caliber and enhance ment. Portal veins and hepatic veins enhance unremarkably. IMPRESSION: Fatty infiltration of the liver as described. No focal concerning liver mass.
== END | disposition home or self-care (01) ==
LOC: RADMRIMAIN 14:22
PROVIDERS: ATTEND Family Medicine
DX: K76.0 Fatty (change of) liver, not elsewhere classified (principal)
CPT/HCPCS: 74183; A9585

== ENCOUNTER → 2021-09-14 | Outpatient (CLI) | payer OTHER ==
--- NOTE | 2021-09-19 09:17 | MM ---
Reason for exam: screening (asymptomatic). Last mammogram was performed 6 years and 5 months ago. History: Patient history of other cancer. Benign US biopsy breast VAD LT of the left breast, April 07, 2015. Took hormonal contraceptives for 2 years. Physical Findings: A clinical breast exam by your physician is recommended on an annual basis and results should be correlated with mammographic findings. MG 3D Screening Mammo W/Cad Bilateral CC and MLO view(s) were taken. Prior study comparison: April 07, 2015, left breast MG diagnostic mammo LT wo CAD. March 31, 2015, bilateral MG diagnostic mammo w CAD ANDREW. The breast tissue is heterogeneously dense. This may lower the sensitivity of mammography. No significant changes when compared with prior studies. ASSESSMENT: Benign, BI-RAD 2 RECOMMENDATION: Routine screening mammogram of both breasts in 1 year.
== END | disposition home or self-care (01) ==
LOC: RADMAMWWP 13:51
PROVIDERS: ATTEND Family Medicine
DX: Z12.31 Encounter for screening mammogram for malignant neoplasm of breast (principal)
CPT/HCPCS: 77063; 77067

== ENCOUNTER 2022-05-13 22:46 | Emergency (ER) | payer OTHER ==
[2022-05-13 22:57] VITALS: RESP 16; TEMP 98
[2022-05-13] MEDS ORDERED: SODIUM CHLORIDE 0.9% 1,000 ML IV STA (22:57)
[2022-05-13] MEDS ORDERED: MORPHINE SULFATE 4 MG/ML SYRINGE IV STA (22:57)
[2022-05-13 23:12] LABS: Basophils # (A) 0.2 k/uL (0-0.2); Basophils % (A) 1 %; Eosinophils # (A) 0.8 k/uL (0-0.7); Eosinophils % (A) 5 %; HCT 40.2 % (34.0-46.0); HGB 13.9 gm/dL (11.4-16.0); Lymphocytes % (A) 29 %; MCHC 34.5 g/dL (31.0-37.0); MCV 89.7 fL (80.0-100.0); Mean Platelet Volume 11.4; Monocytes # (A) 0.7 k/uL (0-1.0); Monocytes % (A) 4 %; Neutrophils # (A) 10.1 k/uL (1.3-7.7); Neutrophils % (A) 59 %; Platelet Count 260 k/uL (150-450); RBC 4.48 m/uL (3.80-5.40); RDW 13.7 % (11.5-15.5)
[2022-05-13 23:20] LABS: INR 0.9 (<1.2); Partial Thromboplastin Time 23.1 sec (22.0-30.0)
[2022-05-13 23:22] LABS: ALT 30 U/L (4-34); AST 30 U/L (14-36); African American GFR (CKD) >90 (>60 ml/min/1.73 sqM); Albumin 3.4 g/dL (3.5-5.0); Alkaline Phosphatase 45 U/L (38-126); Amylase 43 U/L (30-110); Anion Gap 6 mmol/L; Blood Urea Nitrogen 12 mg/dL (7-17); Calcium 8.5 mg/dL (8.4-10.2); Carbon Dioxide 23 mmol/L (22-30); Chloride 108 mmol/L (98-107); Glucose 94 mg/dL (74-99); Lipase 131 U/L (23-300); Non-African American GFR(CKD) 85 (>60 ml/min/1.73 sqM); Sodium 137 mmol/L (137-145); Total Bilirubin 0.4 mg/dL (0.2-1.3); Total Protein 5.5 g/dL (6.3-8.2)
[2022-05-13 23:24] LABS: Appearance,Urine Clear (Clear); Bacteria,Urine Rare /hpf; Bilirubin,Urine Negative (Negative); Blood,Urine Large (Negative); Color,Urine Yellow; Glucose,Urine (UA) Negative (Negative); Ketones,Urine Trace (Negative); Leukocyte Esterase,Urine Small (Negative); Mucus,Urine Moderate /hpf; Nitrite,Urine Negative (Negative); Protein,Urine Trace (Negative); RBC,Urine >182 /hpf (0-5); Specific Gravity,Urine 1.017 (1.001-1.035); Squamous Epithelial Cell,Urine 4 /hpf (0-4); Urobilinogen,Urine <2.0 mg/dL (<2.0); WBC,Urine 7 /hpf (0-5)
--- NOTE | 2022-05-13 23:50 | US ---
EXAMINATION TYPE: US abdomen limited DATE OF EXAM: 05/13/2022 COMPARISON: 01/29/21 CLINICAL HISTORY: RUQ PAIN. RUQ pain and right flank pain x 2 hours TECHNIQUE: Multiple sonographic images of the right upper quadrant are obtained. FINDINGS: EXAM MEASUREMENTS: Liver Length: 14.6 cm Gallbladder Wall: 0.20 cm CBD: 0.30 cm Right Kidney: 9.8 x 4.8 x 5.1 cm [employer] DES[employer] NOTES: Pancreas: Parts visualized wnl. Limited due to bowel gas Liver: Heterogeneous Gallbladder: wnl Evidence for sonographic Forrest's sign: No CBD: wnl Right Kidney: Mild hydronephrosis visualized. Renal pelvis measuring 1.3cm IMPRESSION: No gallstones or dilated ducts. There is right side mild hydronephrosis also present on old CT scan o f 01/29/2021.
--- NOTE | 2022-05-13 23:54 | US ---
EXAMINATION TYPE: US kidneys/renal and bladder DATE OF EXAM: 05/13/2022 COMPARISON: NONE CLINICAL HISTORY: RUQ PAIN radiation to back, hx stones. RUQ and right flank pain x 2 hours EXAM MEASUREMENTS: Right Kidney: 9.8 x 4.2 x 4.5 cm Left Kidney: 11.6 x 4.5 x 5.0 cm Right Kidney: Mild hydronephrosis visualized Left Kidney: No hydronephrosis or masses seen Bladder: Limited due to bladder being empty Bilateral Jets seen: No IMPRESSION: Bladder empty during the exam. No evidence of bladder mass. There is right-sided hydronephrosis witho ut change compared to CT SCAN of 01/29/2021. No renal atrophy.
--- NOTE | 2022-05-14 00:12 | XR ---
EXAMINATION TYPE: XR KUB DATE OF EXAM: 05/14/2022 COMPARISON: 01/31/2021 HISTORY: Pain TECHNIQUE: 2 views upright FINDINGS: No sign of intestinal obstruction or pneumoperitoneum. Fecal pattern is normal. Lung bases are clear. No pathologic calcifications over the kidneys. No evidence of a mass. IMPRESSION: Nonacute abdomen. No change compared to old exam.
[2022-05-14] MEDS ORDERED: HYDROmorphone 1 MG/ML 1 ML SYRINGE IVP STA (00:21)
--- NOTE | 2022-05-14 00:46 | ED ---
General Adult HPI - General Chief complaint: Abdominal Pain Stated complaint: ABD Pain Time Seen by Provider: 05/13/22 22:53 Source: patient Mode of arrival: EMS Limitations: no limitations - History of Present Illness Initial comments: Patient is a 41-year-old female presenting with chief complaint of right-sided abdominal pain. Patient states that the pain started approximately 30 minutes prior to arrival. He was sudden in onset and sharp. Patient has history of kidney stones. Patient states that the pain does wrap around to her back. She admits to nausea and vomiting, she was given Zofran by EMS prior to arrival. She denies any dysuria, hematuria, fever, chills, chest pain, difficulty breathing, diarrhea, hematochezia, melena. - Related Data Home Medications Medication Instructions Recorded Confirmed Omeprazole [PriLOSEC] 20 mg PO BID 07/26/15 01/29/21 Pnv No.95/Ferrous Fum/Folic AC 1 tab PO DAILY 04/07/17 01/29/21 [ Multivitamin Tablet] Ascorbic Acid [Vitamin C] 2,000 mg PO DAILY 01/29/21 01/29/21 Levothyroxine Sodium 25 mcg PO DAILY 01/29/21 01/29/21 Naproxen 500 mg PO BID PRN 01/29/21 01/29/21 tiZANidine HCL 4 mg PO BID 01/29/21 01/29/21 Allergies Allergy/AdvReac Type Severity Reaction Status Date / Time tramadol HCl [From [facility]] Allergy Rash/Hives Verified 01/31/21 02:24 Review of Systems ROS Statement: Those systems with pertinent positive or pertinent negative responses have been documented in the HPI. ROS Other: All systems not noted in ROS Statement are negative. Past Medical History Past Medical History: No Reported History Additional Past Medical History / Comment(s): ANEMIC. FATTY LIVER. History of Any Multi-Drug Resistant Organisms: MRSA Date of last positivie culture/infection: 2005/MRSA MDRO Source:: Left leg Additional Past Surgical History / Comment(s): cyst removed from ovary, D & C, liver biopsy, breast biopsy Past Anesthesia/Blood Transfusion Reactions: Motion Sickness Past Psychological History: Anxiety, Depression Smoking Status: Current every day smoker Past Alcohol Use History: None Reported Past Drug Use History: Marijuana - Past Family History Mother Family Medical History: No Reported History General Exam Limitations: no limitations General appearance: alert, in no apparent distress Head exam: Present: atraumatic, normocephalic, normal inspection Eye exam: Present: normal appearance Neck exam: Present: normal inspection Respiratory exam: Present: normal lung sounds bilaterally. Absent: respiratory distress, wheezes, rales, rhonchi, stridor Cardiovascular Exam: Present: regular rate, normal rhythm, normal heart sounds. Absent: systolic murmur, diastolic murmur, rubs, gallop, clicks GI/Abdominal exam: Present: soft, tenderness (RUQ). Absent: distended, guarding, rebound, rigid Back exam: Absent: CVA tenderness (R), CVA tenderness (L) Neurological exam: Present: alert, oriented X3, CN II-XII intact Psychiatric exam: Present: normal affect, normal mood Skin exam: Present: warm, dry, intact, normal color. Absent: rash Course Vital Signs 05/13/22 05/14/22 22:50 01:06 Temperature 98.0 F Pulse Rate 73 84 Respiratory 16 16 Rate Blood Pressure 143/94 142/88 O2 Sat by Pulse 97 98 Oximetry Medical Decision Making - Medical Decision Making Patient is a 41-year-old female presenting with chief complaint of right-sided abdominal pain that started today. Accompanied by nausea and vomiting. Patient has history of kidney stones. On examination there is some tenderness to the right upper quadrant. WBC 17.0, likely reactive. CMP is nonactionable. Urine shows evidence of blood, likely due to kidney stone. HCG is negative. Ultrasound shows no gallstones or dilated ducts, there is mild right-sided hydronephrosis also present on computed tomography scan from 01/29/21. KUB x-ray shows nonacute abdomen. On reassessment patient's pain is controlled. Patient is instructed to follow up with urology. She is provided with pain meds for home. Follow-up with PCP. Report back to ER with any new or worsening symptoms. Discussed return parameters and answered all questions. Patient conveyed verbal understanding and agreed to the plan. I discussed this case in detail with my attending Dr. Muse - Lab Data Result diagrams: 05/13/22 23:04 05/13/22 23:04 Lab Results 05/13/22 05/13/22 05/13/22 Range/Units 23:04 23:04 23:04 WBC 17.0 H (3.8-10.6) k/uL RBC 4.48 (3.80-5.40) m/uL Hgb 13.9 (11.4-16.0) gm/dL Hct 40.2 (34.0-46.0) % MCV 89.7 (80.0-100.0) fL MCH 31.0 (25.0-35.0) pg MCHC 34.5 (31.0-37.0) g/dL RDW 13.7 (11.5-15.5) % Plt Count 260 (150-450) k/uL MPV 11.4 Neutrophils % 59 % Lymphocytes % 29 % Monocytes % 4 % Eosinophils % 5 % Basophils % 1 % Neutrophils # 10.1 H (1.3-7.7) k/uL Lymphocytes # 5.0 H (1.0-4.8) k/uL Monocytes # 0.7 (0-1.0) k/uL Eosinophils # 0.8 H (0-0.7) k/uL Basophils # 0.2 (0-0.2) k/uL PT 10.0 (9.0-12.0) sec INR 0.9 (<1.2) APTT 23.1 (22.0-30.0) sec Sodium 137 (137-145) mmol/L Potassium 4.0 (3.5-5.1) mmol/L Chloride 108 H (98-107) mmol/L Carbon Dioxide 23 (22-30) mmol/L Anion Gap 6 mmol/L BUN 12 (7-17) mg/dL Creatinine 0.86 (0.52-1.04) mg/dL Est GFR (CKD-EPI)AfAm >90 (>60 ml/min/1.73 sqM) Est GFR (CKD-EPI)NonAf 85 (>60 ml/min/1.73 sqM) Glucose 94 (74-99) mg/dL Plasma Lactic Acid Pavel (0.7-2.0) mmol/L Calcium 8.5 (8.4-10.2) mg/dL Total Bilirubin 0.4 (0.2-1.3) mg/dL AST 30 (14-36) U/L ALT 30 (4-34) U/L Alkaline Phosphatase 45 (38-126) U/L Total Protein 5.5 L (6.3-8.2) g/dL Albumin 3.4 L (3.5-5.0) g/dL Amylase 43 (30-110) U/L Lipase 131 (23-300) U/L Urine Color Urine Appearance (Clear) Urine pH (5.0-8.0) Ur Specific [place] (1.001-1.035) Urine Protein (Negative) Urine Glucose (UA) (Negative) Urine Ketones (Negative) Urine Blood (Negative) Urine Nitrite (Negative) Urine Bilirubin (Negative) Urine Urobilinogen (<2.0) mg/dL Ur Leukocyte Esterase (Negative) Urine RBC (0-5) /hpf Urine WBC (0-5) /hpf Ur Squamous Epith Cells (0-4) /hpf Urine Bacteria (None) /hpf Urine Mucus (None) /hpf Urine HCG, Qual (Not Detectd) 05/13/22 05/13/22 05/13/22 Range/Units 23:04 23:10 23:10 WBC (3.8-10.6) k/uL RBC (3.80-5.40) m/uL Hgb (11.4-16.0) gm/dL Hct (34.0-46.0) % MCV (80.0-100.0) fL MCH (25.0-35.0) pg MCHC (31.0-37.0) g/dL RDW (11.5-15.5) % Plt Count (150-450) k/uL MPV Neutrophils % % Lymphocytes % % Monocytes % % Eosinophils % % Basophils % % Neutrophils # (1.3-7.7) k/uL Lymphocytes # (1.0-4.8) k/uL Monocytes # (0-1.0) k/uL Eosinophils # (0-0.7) k/uL Basophils # (0-0.2) k/uL PT (9.0-12.0) sec INR (<1.2) APTT (22.0-30.0) sec Sodium (137-145) mmol/L Potassium (3.5-5.1) mmol/L Chloride (98-107) mmol/L Carbon Dioxide (22-30) mmol/L Anion Gap mmol/L BUN (7-17) mg/dL Creatinine (0.52-1.04) mg/dL Est GFR (CKD-EPI)AfAm (>60 ml/min/1.73 sqM) Est GFR (CKD-EPI)NonAf (>60 ml/min/1.73 sqM) Glucose (74-99) mg/dL Plasma Lactic Acid Pavel 0.8 (0.7-2.0) mmol/L Calcium (8.4-10.2) mg/dL Total Bilirubin (0.2-1.3) mg/dL AST (14-36) U/L ALT (4-34) U/L Alkaline Phosphatase (38-126) U/L Total Protein (6.3-8.2) g/dL Albumin (3.5-5.0) g/dL Amylase (30-110) U/L Lipase (23-300) U/L Urine Color Yellow Urine Appearance Clear (Clear) Urine pH 6.0 (5.0-8.0) Ur Specific [place] 1.017 (1.001-1.035) Urine Protein Trace H (Negative) Urine Glucose (UA) Negative (Negative) Urine Ketones Trace H (Negative) Urine Blood Large H (Negative) Urine Nitrite Negative (Negative) Urine Bilirubin Negative (Negative) Urine Urobilinogen <2.0 (<2.0) mg/dL Ur Leukocyte Esterase Small H (Negative) Urine RBC >182 H (0-5) /hpf Urine WBC 7 H (0-5) /hpf Ur Squamous Epith Cells 4 (0-4) /hpf Urine Bacteria Rare H (None) /hpf Urine Mucus Moderate H (None) /hpf Urine HCG, Qual Not Detected (Not Detectd) Disposition Clinical Impression: Kidney stone Disposition: HOME SELF-CARE Condition: Good Instructions (If sedation given, give patient instructions): Kidney Stones (ED) Additional Instructions: Follow-up with PCP and urology. Report back to ER with any new or worsening symptoms. Take Motrin and Tylenol as stated for pain control. Is patient prescribed a controlled substance at d/c from ED?: No Referrals: Jeancarlos Oh DO [Primary Care Provider] - 1-2 days Time of Disposition: 00:26
[2022-05-14] MEDS ORDERED: ACET/COD 300 MG/30 MG STARTER PACK 6 TAB BTL PO STA (00:53)
[2022-05-14 01:07] VITALS: BP 142/88; PULSE 84
== END 2022-05-14 01:07 | disposition home or self-care (01) ==
LOC: EC 22:46
DX: N20.0 Calculus of kidney (principal); F32.A Depression, unspecified; F41.9 Anxiety disorder, unspecified; F17.200 Nicotine dependence, unspecified, uncomplicated; F12.90 Cannabis use, unspecified, uncomplicated; Z88.5 Allergy status to narcotic agent
CPT/HCPCS: 99285; 36415; 80053; 82150; 83605; 83690; 85025; 85610; 85730; 81001; 81025; 74018; 76705; 76770; 96374; 96375; 96361 ×2; J2270; J1170

== ENCOUNTER 2023-01-08 21:29 | Emergency (ER) | payer OTHER ==
[2023-01-08 21:36] VITALS: TEMP 98.2
[2023-01-08] MEDS ORDERED: PROPARACAINE 0.5% OPHTH DROPS 15 ML BTL RIGHT EYE STA (22:50)
[2023-01-08] MEDS ORDERED: FLUORESCEIN STRIPS 1 MG STRIP RIGHT EYE ONE (22:50)
[2023-01-08] MEDS ORDERED: ERYTHROMYCIN 5 MG/GM OPHTH OINT 3.5 GM TUBE RIGHT EYE STA (23:29)
--- NOTE | 2023-01-08 23:32 | ED ---
General Adult HPI - General Chief complaint: Eye Problems Stated complaint: Right Eye Swelling Time Seen by Provider: 01/08/23 22:49 Source: patient, RN notes reviewed Mode of arrival: ambulatory Limitations: no limitations - History of Present Illness Initial comments: 42-year-old female presents emergency department chief complaint of right upper eyelid swelling 2 days. She states that the swelling is at her lash line. She reports associated itching and tearing. She states she has a history of styes. She denies any changes in her vision, painful eye movements, fever, chills. - Related Data Home Medications Medication Instructions Recorded Confirmed Omeprazole [PriLOSEC] 20 mg PO BID 07/26/15 01/29/21 Pnv No.95/Ferrous Fum/Folic AC 1 tab PO DAILY 04/07/17 01/29/21 [ Multivitamin Tablet] Ascorbic Acid [Vitamin C] 2,000 mg PO DAILY 01/29/21 01/29/21 Levothyroxine Sodium 25 mcg PO DAILY 01/29/21 01/29/21 Naproxen 500 mg PO BID PRN 01/29/21 01/29/21 tiZANidine HCL 4 mg PO BID 01/29/21 01/29/21 Allergies Allergy/AdvReac Type Severity Reaction Status Date / Time tramadol HCl [From [facility]] Allergy Rash/Hives Verified 01/08/23 21:36 Review of Systems ROS Statement: Those systems with pertinent positive or pertinent negative responses have been documented in the HPI. ROS Other: All systems not noted in ROS Statement are negative. Past Medical History Past Medical History: No Reported History Additional Past Medical History / Comment(s): ANEMIC. FATTY LIVER. History of Any Multi-Drug Resistant Organisms: MRSA Date of last positivie culture/infection: 2005/MRSA MDRO Source:: Left leg Additional Past Surgical History / Comment(s): cyst removed from ovary, D & C, liver biopsy, breast biopsy Past Anesthesia/Blood Transfusion Reactions: Motion Sickness Past Psychological History: Anxiety, Depression Smoking Status: Current every day smoker Past Alcohol Use History: None Reported Past Drug Use History: Marijuana - Past Family History Mother Family Medical History: No Reported History General Exam Limitations: no limitations General appearance: alert, in no apparent distress Head exam: Present: atraumatic, normocephalic, normal inspection Eye exam: Present: PERRL, EOMI, other (blepharitis, VA 25/20 bilaterally, mcdaniel lamp exam no corneal abrasion). Absent: scleral icterus, conjunctival injection, nystagmus, periorbital swelling, periorbital tenderness ENT exam: Present: normal exam, mucous membranes moist Neck exam: Present: normal inspection. Absent: tenderness, meningismus, lymphadenopathy Respiratory exam: Present: normal lung sounds bilaterally. Absent: respiratory distress, wheezes, rales, rhonchi, stridor Cardiovascular Exam: Present: regular rate, normal rhythm, normal heart sounds. Absent: systolic murmur, diastolic murmur, rubs, gallop, clicks Extremities exam: Present: normal inspection Back exam: Present: normal inspection Neurological exam: Present: alert, oriented X3 Psychiatric exam: Present: normal affect, normal mood Skin exam: Present: warm, dry, intact, normal color. Absent: rash Course Vital Signs 01/08/23 21:30 Temperature 98.2 F Pulse Rate 72 Respiratory 18 Rate Blood Pressure 116/80 O2 Sat by Pulse 97 Oximetry Medical Decision Making - Medical Decision Making Was pt. sent in by a medical professional or institution (, PA, COLLECTION DEVELOPMENT LIBRARIAN, urgent care, hospital, or long term...) When possible be specific @ -No Did you speak to anyone other than the patient for history (EMS, parent, family, police, friend...)? What history was obtained from this source @ -No Did you review nursing and triage notes (agree or disagree)? Why? @ -I reviewed and agree with nursing and triage notes Were old charts reviewed (outside hosp., previous admission, EMS record, old EKG, old radiological studies, urgent care reports/EKG's, long term records)? Report findings @ -No old charts were reviewed Differential Diagnosis (chest pain, altered mental status, abdominal pain women, abdominal pain men, vaginal bleeding, weakness, fever, dyspnea, syncope, he adache, dizziness, GI bleed, back pain, seizure, CVA, palpatations, mental health, musculoskeletal)? @ -Conjunctivitis, blepharitis, preseptal cellulitis, orbital cellulitis, this list is not all-inclusive EKG interpreted by me (3pts min.). @ -none X-rays interpreted by me (1pt min.). @ -None done CT interpreted by me (1pt min.). @ -None done U/S interpreted by me (1pt. min.). @ -None done What testing was considered but not performed or refused? (CT, X-rays, U/S, labs)? Why? @ -None What meds were considered but not given or refused? Why? @ -None Did you discuss the management of the patient with other professionals (professionals i.e. Dr., PA, COLLECTION DEVELOPMENT LIBRARIAN, lab, RT, psych nurse, social media sr strategy manager, shop girl, teacher, svp chief marketing officer, case liner)? Give summary @ -No Was smoking cessation discussed for >3mins.? @ -No Was critical care preformed (if so, how long)? @ -No Were there social determinants of health that impacted care today? How? (Homelessness, low income, unemployed, alcoholism, drug addiction, transportation, low edu. Level, literacy, decrease access to med. care, long term, rehab)? @ -No Was there de-escalation of care discussed even if they declined (Discuss DNR or withdrawal of care, Hospice)? DNR status @ -No What co-morbidities impacted this encounter? (DM, HTN, Smoking, COPD, CAD, Cancer, CVA, ARF, Chemo, Hep., AIDS, mental health diagnosis, sleep apnea, morbid obesity)? @ -None Was patient admitted / discharged? Hospital course, mention meds given and route, prescriptions, significant lab abnormalities, going to OR and other pertinent info. @ -Discharged. Patient presented to emergency department with chief complaint of right upper eyelid swelling 2 days. Patient reports itching and tearing as well. Denies vision changes. Swelling is localized to the upper lash line without conjunctival injection, proptosis, painful eye movements. Patient advised to apply warm compresses and erythromycin ointment 4 times a day for blepharitis treatment. Patient stable at time of discharge. Case discussed my attending, Dr. Barraza Undiagnosed new problem with uncertain prognosis? @ -No Drug Therapy requiring intensive monitoring for toxicity (Heparin, Nitro, Insulin, Cardizem)? @ -No Were any procedures done? @ -No Diagnosis/symptom? @ -blepharitis Acute, or Chronic, or Acute on Chronic? @ -acute Uncomplicated (without systemic symptoms) or Complicated (systemic symptoms)? @ -uncomplicated Side effects of treatment? @ -No Exacerbation, Progression, or Severe Exacerbation? @ -No Poses a threat to life or bodily function? How? (Chest pain, [place], [place], pneumonia, PE, COPD, DKA, ARF, appy, cholecystitis, CVA, Diverticulitis, Homicidal, Suicidal, threat to staff... and all critical care pts) @ -No Disposition Clinical Impression: Blepharitis Disposition: HOME SELF-CARE Condition: Stable Instructions (If sedation given, give patient instructions): Blepharitis (ED) Additional Instructions: Wash eyelash line with a baby shampoo. Apply warm compresses for 15 minutes 4 times a day. Apply erythromycin ointment 4 times a day. Please return to the emergency department for new or worsening symptoms. Is patient prescribed a controlled substance at d/c from ED?: No Referrals: Jeancarlos Oh DO [Primary Care Provider] - 1-2 days Time of Disposition: 23:23
[2023-01-09 00:08] VITALS: BP 110/73; PULSE 60; RESP 16
== END 2023-01-09 00:08 | disposition home or self-care (01) ==
LOC: EC 21:29
DX: H01.001 Unspecified blepharitis right upper eyelid (principal); F41.9 Anxiety disorder, unspecified; F32.A Depression, unspecified; F12.90 Cannabis use, unspecified, uncomplicated; F17.200 Nicotine dependence, unspecified, uncomplicated; Z79.899 Other long term (current) drug therapy
CPT/HCPCS: 99283

== ENCOUNTER 2024-07-16 01:51 | Emergency (ER) | payer BC, OTHER ==
--- NOTE | 2024-07-16 02:27 | ED ---
Abdominal Pain HPI - General Source: patient, RN notes reviewed Mode of arrival: ambulatory <RufinoMaggy - Last Filed: 07/16/24 04:04> <Manny Urbina - Last Filed: 07/16/24 06:01> - General Chief Complaint: Abdominal Pain Stated Complaint: ABD Pain Time Seen by Provider: 07/16/24 02:24 - History of Present Illness Initial Comments: 44-year-old female presenting to the ER with chief complaint of left flank pain x 1 hour. States she woke up in the middle of the night to urinate. After urinating, patient began to feel a sharp pain in the left flank similar to previous kidney stones. Also endorses nausea and vomiting. Denies dysuria, urinary frequency, urinary urgency, fever. No other health conditions. Denies blood thinners. (Maggy Joy) - Related Data Home Medications Medication Instructions Recorded Confirmed Omeprazole [PriLOSEC] 20 mg PO BID 07/26/15 01/29/21 Pnv No.95/Ferrous Fum/Folic AC 1 tab PO DAILY 04/07/17 01/29/21 [ Multivitamin Tablet] Ascorbic Acid [Vitamin C] 2,000 mg PO DAILY 01/29/21 01/29/21 Levothyroxine Sodium 25 mcg PO DAILY 01/29/21 01/29/21 Naproxen 500 mg PO BID PRN 01/29/21 01/29/21 tiZANidine HCL 4 mg PO BID 01/29/21 01/29/21 Previous Rx's Medication Instructions Recorded Ketorolac [Toradol] 10 mg PO Q6HR PRN #12 tab 03/19/23 Ondansetron Odt [Zofran Odt] 4 mg PO Q8HR PRN #20 tab 03/19/23 Tamsulosin [Flomax] 0.4 mg PO DAILY #10 cap 03/19/23 HYDROcodone/APAP 5-325MG [Golden 1 tab PO Q4HR PRN 3 Days #18 tab 07/16/24 5-325] Ondansetron Odt [Zofran ODT] 4 mg PO Q8HR PRN #10 tab 07/16/24 Allergies Allergy/AdvReac Type Severity Reaction Status Date / Time tramadol HCl [From [facility]] Allergy Rash/Hives Verified 03/26/23 19:40 Review of Systems ROS Other: All systems not noted in ROS Statement are negative. <Maggy Joy - Last Filed: 07/16/24 04:04> ROS Other: All systems not noted in ROS Statement are negative. <Manny Urbina - Last Filed: 07/16/24 06:01> ROS Statement: Those systems with pertinent positive or pertinent negative responses have been documented in the HPI. Past Medical History Past Medical History: No Reported History Additional Past Medical History / Comment(s): ANEMIC. FATTY LIVER. History of Any Multi-Drug Resistant Organisms: MRSA Date of last positivie culture/infection: 2005/MRSA MDRO Source:: Left leg Additional Past Surgical History / Comment(s): cyst removed from ovary, D & C, liver biopsy, breast biopsy Past Anesthesia/Blood Transfusion Reactions: Motion Sickness Past Psychological History: Anxiety, Depression Smoking Status: Current every day smoker Past Alcohol Use History: None Reported Past Drug Use History: Marijuana - Past Family History Mother Family Medical History: No Reported History <Maggy Joy - Last Filed: 07/16/24 04:04> General Exam General appearance: alert, in no apparent distress Head exam: Present: atraumatic, normocephalic, normal inspection Eye exam: Present: normal appearance, PERRL, EOMI. Absent: scleral icterus, conjunctival injection, periorbital swelling GI/Abdominal exam: Present: soft, normal bowel sounds. Absent: distended, tende rness, guarding, rebound, rigid Back exam: Absent: CVA tenderness (R), CVA tenderness (L) Neurological exam: Present: alert, oriented X3 Psychiatric exam: Present: normal affect, normal mood Skin exam: Present: warm, dry, intact, normal color. Absent: rash <Maggy Joy - Last Filed: 07/16/24 04:04> Course Vital Signs 07/16/24 01:53 Temperature 97.6 F Pulse Rate 71 Respiratory 20 Rate Blood Pressure 146/95 O2 Sat by Pulse 100 Oximetry Medical Decision Making - Lab Data Result diagrams: 07/16/24 02:28 07/16/24 02:28 <Maggy Joy - Last Filed: 07/16/24 04:04> - Lab Data Result diagrams: 07/16/24 02:28 07/16/24 02:28 <Manny Urbina - Last Filed: 07/16/24 06:01> - Medical Decision Making Was pt. sent in by a medical professional or institution (MARIBELL Borja, ASSET PROTECTION MANAGER, urgent care, hospital, or [facility]...) When possible be specific @ -No Did you speak to anyone other than the patient for history (EMS, parent, family, police, friend...)? What history was obtained from this source @ -No Did you review nursing and triage notes (agree or disagree)? Why? @ -I reviewed and agree with nursing and triage notes Were old charts reviewed (outside hosp., previous admission, EMS record, old EKG, old radiological studies, urgent care reports/EKG's, [facility] records)? Report findings @ -No old charts were reviewed Differential Diagnosis (chest pain, altered mental status, abdominal pain women, abdominal pain men, vaginal bleeding, weakness, fever, dyspnea, syncope, headache, dizziness, GI bleed, back pain, seizure, CVA, palpatations, mental health, musculoskeletal)? @ -Differential Abdominal Pain Women: Appendicitis, Cholecystitis, diverticulosis, ischemic bowel, pancreatitis, hepatitis, UTI, gastroenteritis, AAA, incarcerated hernia, bowel obstruction, constipation, inflammatory bowel, hepatitis, peptic ulcer disease, splenic infarction, perforated viscus, vulvitis, ovarian torsion, PID, kidney stone, placenta abruption, this is not meant to be an all-inclusive list EKG interpreted by me (3pts min.). @ -None X-rays interpreted by me (1pt min.). @ -None done CT interpreted by me (1pt min.). @ -CT abdomen pelvis pending U/S interpreted by me (1pt. min.). @ -None done What testing was considered but not performed or refused? (CT, X-rays, U/S, labs)? Why? @ -None What meds were considered but not given or refused? Why? @ -None Did you discuss the management of the patient with other professionals (professionals i.e. MARIBELL Borja, ASSET PROTECTION MANAGER, lab, RT, psych nurse, social media senior associate, quill worker, teacher, command center officer, caser up)? Give summary @ -No Was smoking cessation discussed for >3mins.? @ -No Was critical care preformed (if so, how long)? @ -No Were there social determinants of health that impacted care today? How? (Homelessness, low income, unemployed, alcoholism, drug addiction, t ransportation, low edu. Level, literacy, decrease access to med. care, halfway, rehab)? @ -No Was there de-escalation of care discussed even if they declined (Discuss DNR or withdrawal of care, Hospice)? DNR status @ -No What co-morbidities impacted this encounter? (DM, HTN, Smoking, COPD, CAD, Cancer, CVA, ARF, Chemo, Hep., AIDS, mental health diagnosis, sleep apnea, morbid obesity)? @ -None Was patient admitted / discharged? Hospital course, mention meds given and route, prescriptions, significant lab abnormalities, going to OR and other pertinent info. @ -This is a 44-year-old female presenting with left flank pain x 1 hour. History of kidney stones. Vital signs within acceptable limits. Abdomen soft nontender. Patient is provided with IV fluids, antiemetics, and analgesics. Lab work remarkable for leukocytosis of 15, lactic 2.2. Urinalysis remarkable for large amount of red blood cells. Case signed out to my ED attending Dr. Urbina pending CT abdomen pelvis and disposition. (Maggy Joy) - Lab Data Lab Results 07/16/24 07/16/24 07/16/24 Range/Units 02:24 02:28 02:28 WBC 14.2 H (3.8-10.6) k/uL RBC 4.70 (3.80-5.40) m/uL Hgb 13.9 (11.4-16.0) gm/dL Hct 42.2 (34.0-46.0) % MCV 89.8 (80.0-100.0) fL MCH 29.7 (25.0-35.0) pg MCHC 33.0 (31.0-37.0) g/dL RDW 13.7 (11.5-15.5) % Plt Count 242 (150-450) k/uL MPV 10.4 Neutrophils % 64 % Lymphocytes % 23 % Monocytes % 5 % Eosinophils % 6 % Basophils % 1 % Neutrophils # 9.1 H (1.3-7.7) k/uL Lymphocytes # 3.2 (1.0-4.8) k/uL Monocytes # 0.7 (0-1.0) k/uL Eosinophils # 0.8 H (0-0.7) k/uL Basophils # 0.2 (0-0.2) k/uL Sodium (137-145) mmol/L Potassium (3.5-5.1) mmol/L Chloride (98-107) mmol/L Carbon Dioxide (22-30) mmol/L Anion Gap mmol/L BUN (7-17) mg/dL Creatinine (0.52-1.04) mg/dL Est GFR (CKD-EPI)AfAm (>60 ml/min/1.73 sqM) Est GFR (CKD-EPI)NonAf (>60 ml/min/1.73 sqM) Glucose (74-99) mg/dL Lactic Ac Sepsis Rflx Plasma Lactic Acid Pavel (0.7-2.0) mmol/L Calcium (8.4-10.2) mg/dL Total Bilirubin (0.2-1.3) mg/dL AST (14-36) U/L ALT (4-34) U/L Alkaline Phosphatase (38-126) U/L Total Protein (6.3-8.2) g/dL Albumin (3.5-5.0) g/dL Urine Color Yellow Urine Appearance Cloudy H (Clear) Urine pH 5.5 (5.0-8.0) Ur Specific [place] 1.032 (1.001-1.035) Urine Protein 1+ H (Negative) Urine Glucose (UA) Negative (Negative) Urine Ketones Negative (Negative) Urine Blood Large H (Negative) Urine Nitrite Negative (Negative) Urine Bilirubin Negative (Negative) Urine Urobilinogen 2.0 (<2.0) mg/dL Ur Leukocyte Esterase Negative (Negative) Urine RBC >182 H (0-5) /hpf Urine WBC 2 (0-5) /hpf Ur Squamous Epith Cells 17 H (0-4) /hpf Urine Bacteria Rare H (None) /hpf Hyaline Casts 2 (0-2) /lpf Urine Mucus Moderate H (None) /hpf Urine Yeast (Budding) Occasional H (None) /hpf Urine HCG, Qual Not Detected (Not Detectd) 07/16/24 07/16/24 07/16/24 Range/Units 02:28 02:28 03:58 WBC (3.8-10.6) k/uL RBC (3.80-5.40) m/uL Hgb (11.4-16.0) gm/dL Hct (34.0-46.0) % MCV (80.0-100.0) fL MCH (25.0-35.0) pg MCHC (31.0-37.0) g/dL RDW (11.5-15.5) % Plt Count (150-450) k/uL MPV Neutrophils % % Lymphocytes % % Monocytes % % Eosinophils % % Basophils % % Neutrophils # (1.3-7.7) k/uL Lymphocytes # (1.0-4.8) k/uL Monocytes # (0-1.0) k/uL Eosinophils # (0-0.7) k/uL Basophils # (0-0.2) k/uL Sodium 140 (137-145) mmol/L Potassium 4.4 (3.5-5.1) mmol/L Chloride 104 (98-107) mmol/L Carbon Dioxide 27 (22-30) mmol/L Anion Gap 9 mmol/L BUN 10 (7-17) mg/dL Creatinine 0.80 (0.52-1.04) mg/dL Est GFR (CKD-EPI)AfAm >90 (>60 ml/min/1.73 sqM) Est GFR (CKD-EPI)NonAf >90 (>60 ml/min/1.73 sqM) Glucose 101 H (74-99) mg/dL Lactic Ac Sepsis Rflx Y Plasma Lactic Acid Pavel 2.2 H* (0.7-2.0) mmol/L Calcium 9.3 (8.4-10.2) mg/dL Total Bilirubin 0.6 (0.2-1.3) mg/dL AST 33 (14-36) U/L ALT 22 (4-34) U/L Alkaline Phosphatase 44 (38-126) U/L Total Protein 6.9 (6.3-8.2) g/dL Albumin 4.0 (3.5-5.0) g/dL Urine Color Urine Appearance (Clear) Urine pH (5.0-8.0) Ur Specific [place] (1.001-1.035) Urine Protein (Negative) Urine Glucose (UA) (Negative) Urine Ketones (Negative) Urine Blood (Negative) Urine Nitrite (Negative) Urine Bilirubin (Negative) Urine Urobilinogen (<2.0) mg/dL Ur Leukocyte Esterase (Negative) Urine RBC (0-5) /hpf Urine WBC (0-5) /hpf Ur Squamous Epith Cells (0-4) /hpf Urine Bacteria (None) /hpf Hyaline Casts (0-2) /lpf Urine Mucus (None) /hpf Urine Yeast (Budding) (None) /hpf Urine HCG, Qual (Not Detectd) Disposition <Maggy Joy - Last Filed: 07/16/24 04:04> Is patient prescribed a controlled substance at d/c from ED?: No <Manny Urbina - Last Filed: 07/16/24 06:01> Clinical Impression: Kidney stone Disposition: HOME SELF-CARE Condition: Good Instructions (If sedation given, give patient instructions): Kidney Stones (ED) Prescriptions: HYDROcodone/APAP 5-325MG [Golden 5-325] 1 tab PO Q4HR PRN 3 Days #18 tab PRN Reason: Pain Ondansetron Odt [Zofran ODT] 4 mg PO Q8HR PRN #10 tab PRN Reason: Nausea Referrals: Jeancarlos Oh DO [Primary Care Provider] - 1-2 days
[2024-07-16] MEDS: SODIUM CHLORIDE 0.9% 1,000 ML IV STA (02:32)
[2024-07-16] MEDS: ONDANSETRON 4 MG/2 ML VIAL IVP STA (02:32)
[2024-07-16] MEDS: MORPHINE SULFATE 4 MG/ML SYRINGE IVP STA (02:33)
[2024-07-16] MEDS: KETOROLAC 15 MG/ML 1 ML VIAL IVP STA ×2 (02:35→05:15)
[2024-07-16 02:49] LABS: Basophils # (A) 0.2 k/uL (0-0.2); Basophils % (A) 1 %; Eosinophils # (A) 0.8 k/uL (0-0.7); Eosinophils % (A) 6 %; HCT 42.2 % (34.0-46.0); HGB 13.9 gm/dL (11.4-16.0); Lymphocytes # (A) 3.2 k/uL (1.0-4.8); Lymphocytes % (A) 23 %; MCH 29.7 pg (25.0-35.0); MCV 89.8 fL (80.0-100.0); Mean Platelet Volume 10.4; Monocytes # (A) 0.7 k/uL (0-1.0); Monocytes % (A) 5 %; Neutrophils # (A) 9.1 k/uL (1.3-7.7); Neutrophils % (A) 64 %; Platelet Count 242 k/uL (150-450); RDW 13.7 % (11.5-15.5); WBC 14.2 k/uL (3.8-10.6)
[2024-07-16 03:03] LABS: ALT 22 U/L (4-34); AST 33 U/L (14-36); African American GFR (CKD) >90 (>60 ml/min/1.73 sqM); Alkaline Phosphatase 44 U/L (38-126); Anion Gap 9 mmol/L; Blood Urea Nitrogen 10 mg/dL (7-17); Calcium 9.3 mg/dL (8.4-10.2); Carbon Dioxide 27 mmol/L (22-30); Chloride 104 mmol/L (98-107); Glucose 101 mg/dL (74-99); Non-African American GFR(CKD) >90 (>60 ml/min/1.73 sqM); Sodium 140 mmol/L (137-145); Total Bilirubin 0.6 mg/dL (0.2-1.3); Total Protein 6.9 g/dL (6.3-8.2)
[2024-07-16 03:37] LABS: Appearance,Urine Cloudy (Clear); Bacteria,Urine Rare /hpf; Bilirubin,Urine Negative (Negative); Blood,Urine Large (Negative); Budding Yeast,Urine Occasional /hpf; Color,Urine Yellow; Glucose,Urine (UA) Negative (Negative); Hyaline Casts,Urine 2 /lpf (0-2); Ketones,Urine Negative (Negative); Leukocyte Esterase,Urine Negative (Negative); Mucus,Urine Moderate /hpf; Nitrite,Urine Negative (Negative); PH, Urine 5.5 (5.0-8.0); Protein,Urine 1+ (Negative); RBC,Urine >182 /hpf (0-5); Specific Gravity,Urine 1.032 (1.001-1.035); Squamous Epithelial Cell,Urine 17 /hpf (0-4); WBC,Urine 2 /hpf (0-5)
[2024-07-16 03:55] LABS: Potassium 4.4 mmol/L (3.5-5.1)
--- NOTE | 2024-07-16 05:30 | CT ---
EXAM: CT Abdomen and Pelvis Without Intravenous Contrast CLINICAL HISTORY: ITS.REASON CT Reason: left flank pain, kidney stone suspected TECHNIQUE: Axial computed tomography images of the abdomen and pelvis without intravenous contrast. CTDI is 10 mGy and DLP is 626.9 mGy-cm. This CT exam was performed using one or more of the following dose reduction techniques: automated exposure control, adjustment of the mA and/or kV according to patient size, and/or use of iterative reconstruction technique. COMPARISON: No relevant prior studies available. FINDINGS: Limitations: Limited evaluation in the absence of contrast. Lung bases: Unremarkable. No mass. No consolidation. ABDOMEN: Liver: Hepatic steatosis. Gallbladder and bile ducts: Unremarkable. No calcified stones. No ductal dilation. Pancreas: Unremarkable. No ductal dilation. Spleen: Unremarkable. No splenomegaly. Adrenals: Unremarkable. No mass. Kidneys and ureters: Obstructive 3 x 4 x 3 mm calculus within the left ureterovesicular junction (not visualized on facialist imaging) with upstream mild left renal hydronephrosis with perinephric and periureteral stranding. No other renal calculi identified. Stomach and bowel: No evidence of bowel structure. No obstruction. No mucosal thickening. PELVIS: Appendix: Normal appendix. Bladder: Unremarkable. No stones. Reproductive: Unremarkable as visualized. ABDOMEN and PELVIS: Intraperitoneal space: Unremarkable. No free air. No significant fluid collection. Bones/joints: Degenerative changes in the spine. No acute fracture. No dislocation. Soft tissues: Umbilical hernia containing fat. Vasculature: Atherosclerotic disease. No abdominal aortic aneurysm. Lymph nodes: Unremarkable. No enlarged lymph nodes. IMPRESSION: 1. Obstructive 3 x 4 x 3 mm calculus within the left ureterovesicular junction (not visualized on facialist imaging) with upstream mild left renal hydronephrosis with perinephric and periureteral stranding. 2. No other renal calculi identified. 3. No other acute findings. 4. Incidental findings as described.
[2024-07-16] MEDS: HYDROmorphone 0.5 MG/0.5 ML SYRINGE IVP STA (06:41)
[2024-07-16] MEDS: TAMSULOSIN 0.4 MG CAP.ER.24H PO STA (06:41)
[2024-07-16 07:09] VITALS: BP 123/76; PULSE 65; RESP 19; TEMP 97.8
== END 2024-07-16 07:07 | disposition home or self-care (01) ==
LOC: EC 01:51
DX: N13.2 Hydronephrosis with renal and ureteral calculous obstruction (principal); F17.200 Nicotine dependence, unspecified, uncomplicated; Z88.6 Allergy status to analgesic agent
CPT/HCPCS: 36415; 80053; 83605; 85025; 81001; 81025; 74176; 99284; 96374; 96375; 96361; J2270; J2405; J1885; J1171